=== PATIENT | male | born 1945 | race Caucasian/White ===

== ENCOUNTER 2017-05-30 06:26 | Day surgery (SDC) | payer MEDICARE, BC ==
[~2017-05-30 06:26] MED LIST: Lactated Ringers 1,000 ML IV SCH
[2017-05-30 08:51] VITALS: BP 129/88
[2017-05-30] MEDS ORDERED: Labetalol 20 MG/4 ML Syringe ONE (09:08)
--- NOTE | 2017-05-30 14:10 | OR ---
PREOPERATIVE DIAGNOSIS: History of polyps. POSTOPERATIVE DIAGNOSIS: Sigmoid diverticulosis. Otherwise, normal exam. PROCEDURE PROPOSED: Total flexible colonoscopy. PROCEDURE DONE: Total flexible colonoscopy. INDICATION: This is a 71-year-old gentleman who comes in for colonic surveillance due to history of polyps. His last examination was about 5 years ago. He is requesting no anesthesia, and he has had all his previous colonoscopies done without anesthesia. TECHNIQUE: The patient was brought to the endoscopy suite, placed in the left lateral decubitus position. He was monitored with blood pressure and cardiac monitoring as well as O2 saturation and was not given any sedation. The flexible video colonoscope was then passed transanally and under visualization advanced to the cecum. He had a rather long colon requiring the entire length of the colonoscope. The examination revealed normal cecal area, ascending, transverse, and descending colon. The sigmoid colon revealed [id number] diverticulosis, and the rectal mucosa was normal. There was no evidence of any polyps, colitis or other abnormalities. The scope was then withdrawn. The patient tolerated the procedure well. IMPRESSION: 1. Sigmoid diverticulosis. Otherwise, normal exam. 2. History of polyps. PLAN: He should consider one more screening examination in 5 years. SCM: 05/30/2017 08:01:38 MODL: 05/30/2017 12:28:15 /[id number]
== END 2017-05-30 09:10 | disposition home or self-care (01) ==
LOC: VM.SDS 06:26
PROVIDERS: ATTEND Surgery
DX: Z12.11 Encounter for screening for malignant neoplasm of colon (principal); Z86.010 Personal history of colon polyps; K57.30 Diverticulosis of large intestine without perforation or abscess without bleeding; E11.42 Type 2 diabetes mellitus with diabetic polyneuropathy; I10 Essential (primary) hypertension; I25.810 Atherosclerosis of coronary artery bypass graft(s) without angina pectoris; E66.01 Morbid (severe) obesity due to excess calories; G47.33 Obstructive sleep apnea (adult) (pediatric); E78.1 Pure hyperglyceridemia; Z79.01 Long term (current) use of anticoagulants; Z79.899 Other long term (current) drug therapy; Z79.82 Long term (current) use of aspirin; Z79.84 Long term (current) use of oral hypoglycemic drugs; E83.52 Hypercalcemia; Z96.659 Presence of unspecified artificial knee joint
CPT/HCPCS: 00810; 36415; 82962; 85610; G0105; J7120; A9270-GY

== ENCOUNTER 2021-09-02 23:41 | Inpatient (IN) | payer MEDICARE, BC ==
[2021-09-03] MEDS ORDERED: cefTRIAXone 2 GM Vial IVPUSH STA (00:03)
[2021-09-03] MEDS ORDERED: Sodium Chloride 0.9% 1,000 ML IV SCH ×3 (00:15→09:45)
[2021-09-03 00:41] LABS: CHLORIDE,CL 101 mmol/L (98-107); SODIUM,NA 136 mmol/L (136-145)
--- NOTE | 2021-09-03 00:50 | EDM.PDOC ---
ED HPI GENERAL MEDICAL PROBLEM - General Chief Complaint: Neuro Symptoms/Deficits Stated Complaint: stroke code Time Seen by Provider: 09/02/21 23:47 Source of Information: Reports: Patient History Limitations: Reports: No Limitations - History of Present Illness INITIAL COMMENTS - FREE TEXT/NARRATIVE: Shane is a 75 year old male who presents to ER with EMS for increased weakness. EMS was called initially for a lift assist. Patient very weak, questioned left side arm weakness. Called for stroke code. Patient disoriented to time for EMS. Oriented to person and place. Was unable to provide much history for EMS. Denies chest pain or shortness of breath. Denies cough. No nausea/vomiting or abdominal pain. States "was weak and couldn't get out of the chair". Has been eating today. Took his meds as well. EMS did do EKG, showed atrial fib. Vitals stable. Blood sugar 120. No temp taken. Onset: Today, Gradual Duration: Hour(s): (last known well time 629) Location: Reports: Generalized Associated Symptoms: Reports: Confusion, Fever/Chills, Malaise, Weakness. Denies: Chest Pain, Cough, Headaches, Loss of Appetite, Nausea/Vomiting, Shortness of Breath Treatments [employer]: Reports: See EMS Report - Related Data Allergies Allergy/AdvReac Type Severity Reaction Status Date / Time No Known Allergies Allergy Verified 09/12/19 13:43 Home Meds: Home Meds Acetaminophen [Non-Aspirin] 650 mg PO ASDIRECTED PRN 01/19/14 [History] Aspirin [Halfprin] 81 mg PO DAILY 01/19/14 [History] Metoprolol Succinate [Toprol Xl] 200 mg PO BID 01/19/14 [History] Warfarin [Coumadin] 5 mg PO ASDIRECTED 01/19/14 [History] glipiZIDE [Glipizide] 5 mg PO DAILY 05/23/17 [History] Furosemide 20 mg PO DAILY 09/04/19 [History] Rosuvastatin Calcium 10 mg PO DAILY 09/04/19 [History] Tamsulosin [Tamsulosin 24 Hr] 0.4 mg PO DAILY 09/04/19 [History] dilTIAZem HCL [Diltiazem 24Hr ER] 180 mg PO DAILY 09/04/19 [History] lisinopriL [Lisinopril] 20 mg PO DAILY 09/04/19 [History] metFORMIN HCl [Glucophage] 1,000 mg PO BID 09/04/19 [History] Gabapentin [Neurontin] 100 mg PO BEDTIME 08/10/20 [History] Past Medical History HEENT History: Reports: None Cardiovascular History: Reports: Afib, CAD, High Cholesterol, Hypertension Other Cardiovascular History: aortic stenosis (moderate). 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 hypercalcemia Immunologic History: Reports: None Oncologic (Cancer) History: Reports: Colon - Past Surgical History Head Surgeries/Procedures: Reports: None HEENT Surgical History: Reports: Adenoidectomy, Tonsillectomy Cardiovascular Surgical History: Reports: Coronary Artery Bypass GI Surgical History: Reports: Colonoscopy Musculoskeletal Surgical History: Reports: Knee Replacement Oncologic Surgical History: Reports: None Social & Family History - Family History Cardiac: Reports: Heart Murmur Other Cardiac Family History: brother: heart murmur Respiratory: Reports: Asthma Other Respiratory Family Hisory: Brother: asthma - Tobacco Use Tobacco Use Status *Q: Unknown Ever Used Tobacco ED ROS GENERAL - Review of Systems Review Of Systems: See Below Constitutional: Reports: Fever, Chills, Malaise, Weakness, Fatigue. Denies: Decreased Appetite HEENT: Reports: Other (dry mouth). Denies: Ear Pain, Sinus Problem, Throat Pain Respiratory: Denies: Shortness of Breath, Cough Cardiovascular: Denies: Chest Pain, Edema, Lightheadedness Endocrine: Reports: Fatigue GI/Abdominal: Denies: Abdominal Pain, Constipation, Diarrhea, Nausea, Vomiting : Reports: Other (had bladder scope done on Sunday) Musculoskeletal: Reports: No Symptoms Skin: Reports: No Symptoms Neurological: Reports: Confusion, Weakness ED EXAM, NEURO - Physical Exam Exam: See Below Exam Limited By: No Limitations General Appearance: Alert, WD/WN, No Apparent Distress Eye Exam: Bilateral Eye: EOMI, PERRL Ears: Normal External Exam, Normal TMs Nose: Normal Inspection, Normal Mucosa, No Blood Throat/Mouth: Normal Inspection, Normal Oropharynx Head Exam: Normocephalic Neck: Normal Inspection, Supple, Non-Tender Respiratory/Chest: No Respiratory Distress, Lungs Clear, Normal Breath Sounds Cardiovascular: Irregularly Irregular GI/Abdominal: Normal Bowel Sounds, Soft, Non-Tender Neurological: Alert, Normal Mood/Affect, Normal Dorsiflexion, CN II-XII Intact, Normal Plantar Flexion, No Motor/Sensory Deficits, Oriented x 3 (oriented to person and place) Extremities: Normal Inspection, No Pedal Edema Skin Exam: Warm, Dry Course - Orders/Labs/Meds Orders: Active Orders 24 hr Category Date Time Status Patient Status [ADT] Routine ADT 09/03/21 02:05 Ordered Chest 1V Frontal [CR] Stat Exams 09/03/21 01:11 Taken Head wo Cont [CT] Stat Exams 09/02/21 23:42 Taken CULTURE BLOOD [BC] Stat Lab 09/03/21 00:09 Received CULTURE BLOOD [BC] Stat Lab 09/03/21 00:14 Received CULTURE URINE [RM] Stat Lab 09/03/21 01:52 Received Sodium Chloride 0.9% @ 125 MLS/HR (1000ml) Med 09/03/21 02:00 Ordered Sodium Chloride 0.9% [Normal Saline] 1,000 ml IV ASDIRECTED Sodium Chloride 0.9% [Normal Saline] 1,000 ml Med 09/03/21 00:15 Active IV ASDIRECTED Blood Culture x2 Reflex Set [OM.PC] Stat Oth 09/03/21 00:03 Ordered Medication Orders Sodium Chloride (Normal Saline) 1,000 mls @ 250 mls/hr IV ASDIRECTED [facility] Sodium Chloride (Normal Saline) 1,000 mls @ 125 mls/hr IV ASDIRECTED [facility] Labs: Laboratory Tests 09/03/21 09/03/21 09/03/21 Range/Units 00:04 00:04 00:04 WBC 22.4 H* (4.0-10.0) x10^3/uL RBC 4.84 (4.5-6.0) x10^6/uL Hgb 15.5 (14.0-18.0) g/dL Hct 45.5 (40.0-52.0) % MCV 94.0 H (78.0-93.0) fL MCH 32.0 (26.0-32.0) pg MCHC 34.1 (32.0-36.0) g/dL RDW Coeff of [place] 13.4 (10.0-15.0) % Plt Count 164 (130-400) x10^3/uL Add Manual Diff Yes Neutrophils % (Manual) 71 (50-80) % Band Neutrophils % 15 H (0-6) % Lymphocytes % (Manual) 5 L (25-50) % Monocytes % (Manual) 9 (2-11) % Absolute Neutrophils 19.3 H (1.8-7.7) x10^3/uL Lymphocytes # (Manual) 1.1 (1.0-4.8) x10^3/uL Monocytes # (Manual) 2.0 H (0.0-0.8) x10^3/uL Platelet Estimate Adequate Macrocytosis 1+ slight H PT 23.9 H (9.9-12.5) SEC INR 2.2 (2.0-3.5) APTT 39.0 H (25.6-32.8) SEC Sodium 136 (136-145) mmol/L Potassium 4.0 (3.5-5.1) mmol/L Chloride 101 (98-107) mmol/L Carbon Dioxide 18 L (21-32) mmol/L Anion Gap 21.0 H (5-15) mmol/L BUN 27 H (7-18) mg/dL Creatinine 1.7 H (0.70-1.30) mg/dL Est Cr Clr Drug Dosing TNP Estimated GFR (MDRD) 40 Glucose 147 H (70-99) mg/dL Lactic Acid (0.4-2.0) mmol/L Calcium 9.7 (8.5-10.1) mg/dL Corrected Calcium 10.3 H (8.5-10.1) mg/dL Total Bilirubin 1.8 H (0.2-1.0) mg/dL AST 29 (15-37) U/L ALT 18 (16-63) U/L Alkaline Phosphatase 55 (46-116) U/L Lactate Dehydrogenase 171 (85-227) U/L Creatine Kinase 760 H* (39-308) U/L Troponin I High Sens 34 (<=76) ng/L Total Protein 7.2 (6.4-8.2) g/dL Albumin 3.3 L (3.4-5.0) g/dL Globulin 3.9 Albumin/Globulin Ratio 0.85 Urine Color (YELLOW) Urine Appearance (CLEAR) Urine pH (5.0-8.0) Ur Specific [place] Urine Protein (NEGATIVE) mg/dL Urine Glucose (UA) (NEGATIVE) mg/dL Urine Ketones (NEGATIVE) mg/dL Urine Occult Blood (NEGATIVE) Urine Nitrite (NEGATIVE) Urine Bilirubin (NEGATIVE) Urine Urobilinogen (0.2) EU/dL Ur Leukocyte Esterase (NEGATIVE) Urine RBC (NOT SEEN) /HPF Urine WBC (NOT SEEN) /HPF Ur Squamous Epith Cells (NOT SEEN) /HPF Ur Transition Epith Cell (NOT SEEN) /HPF Urine Bacteria (NOT SEEN) /HPF Urine Mucus (NOT SEEN) /LPF SARS-CoV-2 RNA (DANILO) (NEGATIVE) 09/03/21 09/03/21 09/03/21 Range/Units 00:04 00:04 01:52 WBC (4.0-10.0) x10^3/uL RBC (4.5-6.0) x10^6/uL Hgb (14.0-18.0) g/dL Hct (40.0-52.0) % MCV (78.0-93.0) fL MCH (26.0-32.0) pg MCHC (32.0-36.0) g/dL RDW Coeff of [place] (10.0-15.0) % Plt Count (130-400) x10^3/uL Add Manual Diff Neutrophils % (Manual) (50-80) % Band Neutrophils % (0-6) % Lymphocytes % (Manual) (25-50) % Monocytes % (Manual) (2-11) % Absolute Neutrophils (1.8-7.7) x10^3/uL Lymphocytes # (Manual) (1.0-4.8) x10^3/uL Monocytes # (Manual) (0.0-0.8) x10^3/uL Platelet Estimate Macrocytosis PT (9.9-12.5) SEC INR (2.0-3.5) APTT (25.6-32.8) SEC Sodium (136-145) mmol/L Potassium (3.5-5.1) mmol/L Chloride (98-107) mmol/L Carbon Dioxide (21-32) mmol/L Anion Gap (5-15) mmol/L BUN (7-18) mg/dL Creatinine (0.70-1.30) mg/dL Est Cr Clr Drug Dosing Estimated GFR (MDRD) Glucose (70-99) mg/dL Lactic Acid 6.7 H* (0.4-2.0) mmol/L Calcium (8.5-10.1) mg/dL Corrected Calcium (8.5-10.1) mg/dL Total Bilirubin (0.2-1.0) mg/dL AST (15-37) U/L ALT (16-63) U/L Alkaline Phosphatase (46-116) U/L Lactate Dehydrogenase (85-227) U/L Creatine Kinase (39-308) U/L Troponin I High Sens (<=76) ng/L Total Protein (6.4-8.2) g/dL Albumin (3.4-5.0) g/dL Globulin Albumin/Globulin Ratio Urine Color Lorna H (YELLOW) Urine Appearance Cloudy H (CLEAR) Urine pH 5.5 (5.0-8.0) Ur Specific [place] >=1.030 Urine Protein 100 H (NEGATIVE) mg/dL Urine Glucose (UA) Negative (NEGATIVE) mg/dL Urine Ketones Trace H (NEGATIVE) mg/dL Urine Occult Blood Moderate H (NEGATIVE) Urine Nitrite Positive H (NEGATIVE) Urine Bilirubin Small H (NEGATIVE) Urine Urobilinogen 0.2 (0.2) EU/dL Ur Leukocyte Esterase Small H (NEGATIVE) Urine RBC 5-10 H (NOT SEEN) /HPF Urine WBC 75-100 H (NOT SEEN) /HPF Ur Squamous Epith Cells Moderate H (NOT SEEN) /HPF Ur Transition Epith Cell Few H (NOT SEEN) /HPF Urine Bacteria Few H (NOT SEEN) /HPF Urine Mucus Few H (NOT SEEN) /LPF SARS-CoV-2 RNA (DANILO) Negative (NEGATIVE) Meds: Medications Generic Name Dose Route Start Last Admin Trade Name Freq PRN Reason Stop Dose Admin Sodium Chloride 1,000 mls @ 250 mls/hr 09/03/21 00:15 Normal Saline IV ASDIRECTED [facility] Sodium Chloride 1,000 mls @ 125 mls/hr 09/03/21 02:00 Normal Saline IV ASDIRECTED [facility] Discontinued Medications Generic Name Dose Route Start Last Admin Trade Name Ham PRN Reason Stop Dose Admin Acetaminophen 650 mg 09/03/21 01:52 Acetaminophen 325 Mg Tab PO 09/03/21 01:53 NOW ONE Ceftriaxone Sodium 2 gm 09/03/21 00:03 Ceftriaxone 2 Gm Vial IVPUSH 09/03/21 00:04 STAT STA - Re-Assessments/Exams Free Text/Narrative Re-Assessment/Exam: 09/03/21 01:14 Labs noted. WBC 22.4, bands 15. Sodium, potassium normal. BUN 27, Creatinine 1.7. Lactic acid 6.7. CK 760. Waiting on urine. 09/03/21 02:07 urine positive. Elias Garcia PA-C called for admission, report given. Departure - Departure Time of Disposition: 02:08 Disposition: Admitted As Inpatient 67 Condition: Fair Clinical Impression: Sepsis, Urinary tract infection - Discharge Information *PRESCRIPTION DRUG MONITORING PROGRAM REVIEWED*: No *COPY OF PRESCRIPTION DRUG MONITORING REPORT IN PATIENT GREG: No Referrals: PCP,None [Primary Care Provider] - Forms: ED Department Discharge - My Orders Last 24 Hours: My Active Orders 09/02/21 23:42 Head wo Cont [CT] Stat 09/03/21 00:03 Blood Culture x2 Reflex Set [OM.PC] Stat 09/03/21 00:09 CULTURE BLOOD [BC] Stat 09/03/21 00:14 CULTURE BLOOD [BC] Stat 09/03/21 00:15 Sodium Chloride 0.9% [Normal Saline] 1,000 ml IV ASDIRECTED 09/03/21 01:11 Chest 1V Frontal [CR] Stat 09/03/21 01:52 CULTURE URINE [RM] Stat 09/03/21 02:00 Sodium Chloride 0.9% @ 125 MLS/HR (1000ml) Sodium Chloride 0.9% [Normal Saline] 1,000 ml IV ASDIRECTED 09/03/21 02:05 Patient Status [ADT] Routine - Assessment/Plan Last 24 Hours: My Active Orders 09/02/21 23:42 Head wo Cont [CT] Stat 09/03/21 00:03 Blood Culture x2 Reflex Set [OM.PC] Stat 09/03/21 00:09 CULTURE BLOOD [BC] Stat 09/03/21 00:14 CULTURE BLOOD [BC] Stat 09/03/21 00:15 Sodium Chloride 0.9% [Normal Saline] 1,000 ml IV ASDIRECTED 09/03/21 01:11 Chest 1V Frontal [CR] Stat 09/03/21 01:52 CULTURE URINE [RM] Stat 09/03/21 02:00 Sodium Chloride 0.9% @ 125 MLS/HR (1000ml) Sodium Chloride 0.9% [Normal Saline] 1,000 ml IV ASDIRECTED 09/03/21 02:05 Patient Status [ADT] Routine
[2021-09-03] MEDS ORDERED: Acetaminophen 325 MG Tab PO ONE (01:52)
--- NOTE | 2021-09-03 08:52 | CT ---
[id number] CT/CT Head WO IV EXAM: CT Head WO IV CLINICAL DATA: STROKE CODE COMPARISON STUDY: None FINDINGS: No intracranial hemorrhage, extra-axial fluid collection, mass, or acute ischemia. Generalized parenchymal atrophy with scattered areas of nonspecific white matter disease, commonly seen as sequela of chronic microvascular ischemia. Soft tissues are unremarkable. Paranasal sinuses and mastoid air cells are clear. IMPRESSION: No acute intracranial findings. Iker Rios DO 09/03/21 0851 Thank you for allowing us to participate in the care of your patient.
--- NOTE | 2021-09-03 08:56 | CR ---
[id number] RAD/RAD Chest PA or AP 1V EXAM: RAD Chest PA or AP 1V INDICATION: FEVER OF UNKNOWN ORIGIN COMPARISON: None. DISCUSSION: Median sternotomy wires. Cardiomediastinal silhouette is interval. No infiltrate, effusion, pneumothorax, or edema. Pulmonary hyperinflation. IMPRESSION: Cardiomegaly without evidence of acute CHF exacerbation. Iker Rios DO 09/03/21 0855 Thank you for allowing us to participate in the care of your patient.
[2021-09-03] MEDS ORDERED: LISINOPRIL PO SCH (09:30)
[2021-09-03] MEDS: Acetaminophen 500 MG Tab PO PRN ×2 (10:13→17:22)
[2021-09-03] MEDS: Lisinopril 20 MG Tab PO SCH ×2 (10:13→19:52)
[2021-09-03] MEDS: metFORMIN 500 MG Tab PO SCH ×2 (10:13→17:23)
[2021-09-03] MEDS: Rosuvastatin 20 MG Tab PO SCH (10:14)
[2021-09-03] MEDS: Tamsulosin 0.4 MG Cap.ER PO SCH (10:14)
[2021-09-03] MEDS: Diltiazem 180 MG Cap.CD PO SCH (10:14)
[2021-09-03] MEDS: glipiZIDE 5 MG Tab PO SCH (10:15)
[2021-09-03] MEDS: Aspirin 81 MG Tab.EC PO SCH (10:15)
[2021-09-03] MEDS: amLODIPine 10 MG Tab PO SCH (10:15)
[2021-09-03] MEDS: Furosemide 40 MG Tab PO SCH (10:15)
[2021-09-03] MEDS: Digoxin 125 MCG Tab PO SCH (10:15)
[2021-09-03] MEDS: Metoprolol Succinate 50 MG Tab.ER PO SCH (10:19)
[2021-09-03] MEDS ORDERED: Nitrofurantoin Monohydrate/Macrocrystalline 100 MG Cap PO SCH (10:30)
[2021-09-03 11:25] LABS: ANION GAP 14.6 mmol/L (5-15)
[2021-09-03] MEDS ORDERED: Magnesium Sulfate/Water 4 GM in Premix Bag 1 BAG IV ONE (12:16)
[2021-09-03] MEDS ORDERED: Piperacillin/Tazobactam 3.375 GM in Sodium Chloride 0.9% 100 ML IV ONE (12:45)
[2021-09-03] MEDS: cefTRIAXone 1 GM Vial IVPUSH SCH (12:50)
[2021-09-03] MEDS: Sodium Chloride 0.9% 1,000 ML IV SCH (13:29)
--- NOTE | 2021-09-03 13:50 | HP ---
History and physical to the acute care floor at [facility]. CHIEF COMPLAINT: Increased weakness. HISTORY OF PRESENT ILLNESS: A 75-year-old male patient presented to the emergency room at [facility] early this morning via EMS for increased weakness. EMS was called initially per lift assist. The patient was very weak, questioned left-side arm weakness. Therefore, they felt a stroke code was necessary. CT scan of the head was negative for acute pathology. Upon arrival to the emergency room, the patient was oriented to person and place. The patient was unable to provide much history upon arrival. The patient states he was trying to get out of bed to go use the restroom when his legs were very weak and he fell to the floor. The patient denies any head injury or LOC. No neck or back pain. The patient states he was too weak to get off the floor, so he laid there for quite some time before EMS was summoned. In the emergency room, the CT of the head was negative. The patient did have a positive UA. The patient also had a significant elevated WBC count of 22.4 with a left shift. Chest x-ray was negative. The patient had an elevated lactic acid of 6.7 and a CK of 760. Also, acute renal failure with a BUN of 27, creatinine 1.7. PAST MEDICAL HISTORY: 1. Essential hypertension. 2. CAD. 3. Chronic atrial fib. 4. Severe aortic stenosis. 5. Ascending aortic dilation. 6. Obstructive sleep apnea, on CPAP. 7. Type 2 diabetes. 8. Mixed hyperlipidemia. 9. Benign neoplasm of the colon. 10.BPH. 11.Long-term use of anticoagulation therapy. 12.History of falls. PAST SURGICAL HISTORY: 1. Colonoscopy. 2. CABG. 3. Right total knee replacement. 4. Tonsillectomy and adenoidectomy. 5. Vein ligation, stripping. 6. Aortic valve replacement, bioprosthetic. FAMILY HISTORY: Noncontributory. SOCIAL HISTORY: The patient is a former smoker. He quit smoking in 1997. No alcohol use. No drug use. The patient is currently not . The patient does live alone. ALLERGIES: No known drug allergies. MEDICATIONS: 1. Acetaminophen 500 mg every 4 hours as needed. 2. Lasix 20 mg 1 tablet p.o. daily. 3. Coumadin. 4. Flomax 0.4 mg 1 capsule p.o. daily. 5. Digoxin 0.0625, 1 tablet p.o. daily. 6. Amlodipine 10 mg 1 tablet p.o. daily. 7. Gabapentin 100 mg 1 tablet p.o. daily at bedtime. 8. Ergocalciferol 50,000 units every 7 days. 9. Glipizide 5 mg 1 tablet p.o. daily. 10.Lisinopril 20 mg twice daily. 11.Metformin 1000 mg 1 tablet p.o. twice daily. 12.Crestor 10 mg 1 tablet p.o. daily. 13.Diltiazem 180 mg 1 capsule p.o. daily. 14.Metoprolol 200 mg 1 tablet p.o. daily. 15.Aspirin 81 mg 1 tablet p.o. daily. LABORATORY STUDIES: 1. CBC: White blood cell count 22.4, hemoglobin 15.5, hematocrit 45.5, platelets 164,000. 2. PT 23.9, INR 2.2. 3. CMP: Sodium 136, potassium 4.0, chloride 101, CO2 of 18, anion gap 21.0, BUN 27, creatinine 1.7, GFR 40, glucose 147, calcium 9.7, total bilirubin 1.8, AST 29, ALT 18, alkaline phosphatase 55. 4. Lactic acid 6.7. 5. CK 760. 6. LDH 171. 7. UA positive for UTI. 8. COVID-19 - negative. REVIEW OF SYSTEMS: Constitutional: Complains of weakness Skin: Negative Respiratory: Negative Cardiovascular: Negative Abdomen: Negative Neurological: Negative PHYSICAL EXAM: Vital Signs: BP 123/73; HR 100; RR 20; Temp 99.3F; O2 95 Room Air Height: 6'0"; Admission weight 274.9lb General: No acute distress; cooperative; alert Respiratory: decreased throughout; bibasilar crackles Cardiovascular: RRR, no murmur Abdomen: obese; BS decreased; soft, non-tender Extremity: No edema Neurological: alert, disoriented to time; oriented to place and self; no focal neurological deficits ASSESSMENT: 1. Sepsis secondary to urinary tract infection as evidenced by leukocytosis, lactic acidosis. 2. Urinary tract infection, complicated. 3. Profound weakness. 4. Chronic atrial fibrillation. 5. Essential hypertension. 6. Coronary artery disease. 7. Type 2 diabetes, not on long-term use insulin. 8. Obstructive sleep apnea, on CPAP. 9. Mixed hyperlipidemia secondary to diabetes. 10.Benign neoplasm of the colon. 11.Long-term use of anticoagulant therapy. 12.Acute kidney injury. PLAN: A 75-year-old male patient was admitted to the acute care floor at [facility] for the above diagnoses. The patient will continue on Rocephin 1 g daily IV concurrently was Zosyn 3.375 mg every 6 hours. The patient's blood cultures preliminarily are positive for gram-negative rods. We should have good coverage with the current antibiotics. Pharmacy to dose Coumadin and monitor INR. Physical and occupational therapy respectively. We will gently rehydrate the patient with normal saline given the elevated CK. The patient is a code 2 per his wishes. The patient does wish to transfer to a higher level of care should the need arise. Continue home medications the same. May consider holding metformin depending upon kidney function. We will replace magnesium 4 g IV today. I do anticipate the patient to be admitted at least 3 to 4 days given the sepsis and positive blood cultures. Recheck laboratory work tomorrow. TB: 09/03/2021 13:01:57 MODL: 09/03/2021 13:43:15 /[id number] MTDD
[2021-09-03] MEDS: Warfarin 5 MG Tab PO SCH (19:53)
[2021-09-03] MEDS: Gabapentin 100 MG Cap PO SCH (19:53)
[2021-09-03] MEDS: Piperacillin/Tazobactam 3.375 GM in Sodium Chloride 0.9% 100 ML IV SCH (19:53)
[2021-09-04] MEDS: Piperacillin/Tazobactam 3.375 GM in Sodium Chloride 0.9% 100 ML IV SCH ×3 (04:23→20:14)
[2021-09-04] MEDS: Sodium Chloride 0.9% 1,000 ML IV SCH ×2 (04:26→16:55)
[2021-09-04] MEDS: Aspirin 81 MG Tab.EC PO SCH (08:16)
[2021-09-04] MEDS: Metoprolol Succinate 50 MG Tab.ER PO SCH (08:16)
[2021-09-04] MEDS: Lisinopril 20 MG Tab PO SCH ×2 (08:17→20:13)
[2021-09-04] MEDS: Furosemide 40 MG Tab PO SCH (08:18)
[2021-09-04] MEDS: Rosuvastatin 20 MG Tab PO SCH (08:18)
[2021-09-04] MEDS: Diltiazem 180 MG Cap.CD PO SCH (08:18)
[2021-09-04] MEDS: Digoxin 125 MCG Tab PO SCH (08:19)
[2021-09-04] MEDS: metFORMIN 500 MG Tab PO SCH ×2 (08:20→17:47)
[2021-09-04] MEDS: glipiZIDE 5 MG Tab PO SCH (08:20)
[2021-09-04] MEDS: cefTRIAXone 1 GM Vial IVPUSH SCH (08:21)
[2021-09-04] MEDS: amLODIPine 10 MG Tab PO SCH (08:21)
[2021-09-04] MEDS: Tamsulosin 0.4 MG Cap.ER PO SCH (08:21)
[2021-09-04 08:59] LABS: ANION GAP 16.8 mmol/L (5-15)
--- NOTE | 2021-09-04 14:11 | PN ---
Progress Note for LUIS ESPARZA Date: 09/04/2021 Room #: VM.218 SUBJECTIVE: A 75-year-old male patient was admitted to the acute care floor at [facility] for sepsis secondary to UTI, evidenced by leukocytosis and lactic acidosis. The patient is currently on Zosyn and Rocephin. The patient also had rhabdomyolysis with a CK of 3400. The patient's COVID-19 is negative. The patient states this morning he is feeling much better. He states his weakness seemed to improve. The patient's appetite has been good. He denies any problems with urination or bowel movements. No headaches, dizziness, or lightheadedness. The patient denies any pain. No chest pain or palpitations. No cough or shortness of breath. The patient denies any abdominal pain. No nausea, vomiting, or diarrhea. No fevers or chills. Overall, the patient feels that he is improving. PHYSICAL EXAMINATION: Vital Signs: Temperature 98.0, pulse 106, blood pressure 133/87, respiratory rate 16, and oxygen saturation 96% on room air. Skin: Intact, warm and dry. Respiratory: Lungs are decreased throughout, otherwise clear. Cardiovascular: Regular rate and rhythm, no murmur. Abdomen: Obese, nontender, and soft. Bowel sounds are hyperactive x4. Neurological: The patient is alert. The patient is oriented to self and place but disoriented to time. No focal neurological deficits. The patient is cooperative. LABORATORY STUDIES: 1. CBC: White blood cell count 19.5, hemoglobin 15.2, hematocrit 44.3, and platelets 100,000. 2. PT 26.5, INR 2.4. 3. BMP: Sodium 137, potassium 3.8, chloride 102, CO2 of 22, anion gap 16.8, BUN 27, creatinine 1.4, GFR 50, glucose 203, and calcium 9.1. 4. CK 1526. ASSESSMENT: 1. Sepsis secondary to urinary tract infection as evidenced by leukocytosis and lactic acidosis. 2. Urinary tract infection, complicated. 3. Profound weakness. 4. Chronic atrial fibrillation. 5. Essential hypertension. 6. Coronary artery disease. 7. Type 2 diabetes, not on long-term use insulin. 8. Obstructive sleep apnea, on CPAP. 9. Mixed hyperlipidemia secondary to diabetes. 10.Benign neoplasm of the colon. 11.Long-term use of anticoagulant therapy. 12.Acute kidney injury. PLAN: A 75-year-old male patient was admitted to the acute care floor at [facility] for the above diagnoses. Patient will continue on Rocephin 1 g every 24 hours and Zosyn 3.375 mg every 6 hours. The patient is doing much better today. His white cell count is improving. His CK has also improved. Awaiting lactic acid. Pharmacy will continue to dose Coumadin and monitor the INR. Recheck laboratory work tomorrow. No other changes with medication. TB: 09/04/2021 09:48:27 MODL: 09/04/2021 10:33:01 /[id number]
[2021-09-04] MEDS: Warfarin 5 MG Tab PO SCH (20:13)
[2021-09-04] MEDS: Gabapentin 100 MG Cap PO SCH (20:13)
[2021-09-05] MEDS: Piperacillin/Tazobactam 3.375 GM in Sodium Chloride 0.9% 100 ML IV SCH ×2 (04:05→12:33)
[2021-09-05] MEDS: Sodium Chloride 0.9% 1,000 ML IV SCH ×2 (05:11→16:57)
[2021-09-05 07:05] LABS: ANION GAP 12.8 mmol/L (5-15)
[2021-09-05] MEDS: cefTRIAXone 1 GM Vial IVPUSH SCH (08:28)
[2021-09-05] MEDS: Tamsulosin 0.4 MG Cap.ER PO SCH (08:29)
[2021-09-05] MEDS: glipiZIDE 5 MG Tab PO SCH (08:29)
[2021-09-05] MEDS: metFORMIN 500 MG Tab PO SCH ×2 (08:29→17:36)
[2021-09-05] MEDS: amLODIPine 10 MG Tab PO SCH (08:29)
[2021-09-05] MEDS: Furosemide 40 MG Tab PO SCH (08:29)
[2021-09-05] MEDS: Aspirin 81 MG Tab.EC PO SCH (08:29)
[2021-09-05] MEDS: Diltiazem 180 MG Cap.CD PO SCH (08:30)
[2021-09-05] MEDS: Metoprolol Succinate 50 MG Tab.ER PO SCH (08:30)
[2021-09-05] MEDS: Lisinopril 20 MG Tab PO SCH ×2 (08:30→20:06)
[2021-09-05] MEDS: Digoxin 125 MCG Tab PO SCH (08:30)
[2021-09-05] MEDS: Rosuvastatin 20 MG Tab PO SCH (08:30)
--- NOTE | 2021-09-05 13:04 | PCM.PN ---
- General Info Date of Service: 09/05/21 Subjective Update: Shane is a 75-year-old male who was admitted on 09/03/2021 after presenting to the ER for acute onset of confusion and weakness. notes that on the day of admit he had been quite tired and spent most of the day in bed. After soiling the bed and having 2 falls though they did call EMS for lift assist and to bring him into the ER for evaluation. After work-up patient was found to have a likely urosepsis. Also had a mild rhabdomyolysis secondary to time that he spent on the floor. He was admitted and initiated on IV antibiotics. Over the course of last 2 days he has become more he has become. His vital signs as well as his lab evaluation has been improving. His white blood cell count is down to 14.7 today. His anion gap is closed. His creatinine is improved. Blood cultures have grown out E. coli. Urine cultures have not grown anything yet. His notes that his color and his demeanor are quite improved. They do question if this infection can be secondary to a scope that he had completed last week. 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 He was supposed to start on antibiotics right after this procedure but notes a 4-hour delay. She is worried that this is what caused the infection. Functional Status: Reports: Pain Controlled - Review of Systems General: Reports: No Symptoms HEENT: Reports: No Symptoms Pulmonary: Reports: No Symptoms Cardiovascular: Reports: No Symptoms Gastrointestinal: Reports: No Symptoms Genitourinary: Reports: No Symptoms Musculoskeletal: Reports: No Symptoms Skin: Reports: No Symptoms Neurological: Reports: No Symptoms Psychiatric: Reports: No Symptoms - Patient Data Vitals - Most Recent: Last Vital Signs Temp 98 F 09/05/21 09:49 Pulse 113 H 09/05/21 09:49 Resp 20 09/05/21 09:49 BP 136/95 H 09/05/21 09:49 Pulse Ox 96 09/05/21 09:49 Weight - Most Recent: 286 lb I&O - Last 24 Hours: Intake & Output 09/04/21 09/05/21 09/05/21 22:59 06:59 14:59 Intake Total 2249 1100 120 Output Total 600 750 Balance 1649 350 120 Lab Results Last 24 Hours: Laboratory Results - last 24 hr 09/04/21 09/04/21 09/04/21 Range/Units 16:04 17:44 21:24 WBC (4.0-10.0) x10^3/uL RBC (4.5-6.0) x10^6/uL Hgb (14.0-18.0) g/dL Hct (40.0-52.0) % MCV (78.0-93.0) fL MCH (26.0-32.0) pg MCHC (32.0-36.0) g/dL RDW Coeff of Villa (10.0-15.0) % Plt Count (130-400) x10^3/uL Immature Gran % (Auto) (0.00-0.43) % Neut % (Auto) (50.0-80.0) % Lymph % (Auto) (25.0-50.0) % Burnet % (Auto) (2.0-11.0) % Eos % (Auto) (0.0-4.0) % Baso % (Auto) (0.2-1.2) % Neut # (Auto) (1.8-7.7) x10^3/uL Lymph # (Auto) (1.0-4.8) x10^3/uL Burnet # (Auto) (0.0-0.8) x10^3/uL Eos # (Auto) (0.0-0.5) x10^3/uL Baso # (Auto) (0.0-0.2) x10^3/uL Immature Gran # (Auto) (0.00-0.07) x10^3/uL Sodium (136-145) mmol/L Potassium (3.5-5.1) mmol/L Chloride (98-107) mmol/L Carbon Dioxide (21-32) mmol/L Anion Gap (5-15) mmol/L BUN (7-18) mg/dL Creatinine (0.70-1.30) mg/dL Est Cr Clr Drug Dosing mL/min Estimated GFR (MDRD) Glucose (70-99) mg/dL POC Glucose 154 H 121 H (70-99) mg/dL Lactic Acid 2.4 H* (0.4-2.0) mmol/L Calcium (8.5-10.1) mg/dL Corrected Calcium (8.5-10.1) mg/dL Total Bilirubin (0.2-1.0) mg/dL AST (15-37) U/L ALT (16-63) U/L Alkaline Phosphatase (46-116) U/L Total Protein (6.4-8.2) g/dL Albumin (3.4-5.0) g/dL Globulin Albumin/Globulin Ratio 09/05/21 09/05/21 09/05/21 Range/Units 06:15 06:15 06:18 WBC 14.7 H (4.0-10.0) x10^3/uL RBC 4.32 L (4.5-6.0) x10^6/uL Hgb 14.1 (14.0-18.0) g/dL Hct 40.4 (40.0-52.0) % MCV 93.5 H (78.0-93.0) fL MCH 32.6 H (26.0-32.0) pg MCHC 34.9 (32.0-36.0) g/dL RDW Coeff of Villa 13.5 (10.0-15.0) % Plt Count 98 L (130-400) x10^3/uL Immature Gran % (Auto) 0.30 (0.00-0.43) % Neut % (Auto) 89.4 H (50.0-80.0) % Lymph % (Auto) 4.2 L (25.0-50.0) % Burnet % (Auto) 5.9 (2.0-11.0) % Eos % (Auto) 0.1 (0.0-4.0) % Baso % (Auto) 0.1 L (0.2-1.2) % Neut # (Auto) 13.1 H (1.8-7.7) x10^3/uL Lymph # (Auto) 0.6 L (1.0-4.8) x10^3/uL Burnet # (Auto) 0.9 H (0.0-0.8) x10^3/uL Eos # (Auto) 0.0 (0.0-0.5) x10^3/uL Baso # (Auto) 0.0 (0.0-0.2) x10^3/uL Immature Gran # (Auto) 0.05 (0.00-0.07) x10^3/uL Sodium 139 (136-145) mmol/L Potassium 3.8 (3.5-5.1) mmol/L Chloride 103 (98-107) mmol/L Carbon Dioxide 27 (21-32) mmol/L Anion Gap 12.8 (5-15) mmol/L BUN 22 H (7-18) mg/dL Creatinine 1.2 (0.70-1.30) mg/dL Est Cr Clr Drug Dosing 59.28 mL/min Estimated GFR (MDRD) 59 Glucose 139 H (70-99) mg/dL POC Glucose 141 H (70-99) mg/dL Lactic Acid (0.4-2.0) mmol/L Calcium 8.8 (8.5-10.1) mg/dL Corrected Calcium 10.2 H (8.5-10.1) mg/dL Total Bilirubin 0.9 (0.2-1.0) mg/dL AST 66 H (15-37) U/L ALT 46 (16-63) U/L Alkaline Phosphatase 76 (46-116) U/L Total Protein 6.4 (6.4-8.2) g/dL Albumin 2.3 L (3.4-5.0) g/dL Globulin 4.1 Albumin/Globulin Ratio 0.56 // Range/Units 10:54 WBC (4.0-10.0) x10^3/uL RBC (4.5-6.0) x10^6/uL Hgb (14.0-18.0) g/dL Hct (40.0-52.0) % MCV (78.0-93.0) fL MCH (26.0-32.0) pg MCHC (32.0-36.0) g/dL RDW Coeff of Villa (10.0-15.0) % Plt Count (130-400) x10^3/uL Immature Gran % (Auto) (0.00-0.43) % Neut % (Auto) (50.0-80.0) % Lymph % (Auto) (25.0-50.0) % Burnet % (Auto) (2.0-11.0) % Eos % (Auto) (0.0-4.0) % Baso % (Auto) (0.2-1.2) % Neut # (Auto) (1.8-7.7) x10^3/uL Lymph # (Auto) (1.0-4.8) x10^3/uL Burnet # (Auto) (0.0-0.8) x10^3/uL Eos # (Auto) (0.0-0.5) x10^3/uL Baso # (Auto) (0.0-0.2) x10^3/uL Immature Gran # (Auto) (0.00-0.07) x10^3/uL Sodium (136-145) mmol/L Potassium (3.5-5.1) mmol/L Chloride (98-107) mmol/L Carbon Dioxide (21-32) mmol/L Anion Gap (5-15) mmol/L BUN (7-18) mg/dL Creatinine (0.70-1.30) mg/dL Est Cr Clr Drug Dosing mL/min Estimated GFR (MDRD) Glucose (70-99) mg/dL POC Glucose 130 H (70-99) mg/dL Lactic Acid (0.4-2.0) mmol/L Calcium (8.5-10.1) mg/dL Corrected Calcium (8.5-10.1) mg/dL Total Bilirubin (0.2-1.0) mg/dL AST (15-37) U/L ALT (16-63) U/L Alkaline Phosphatase (46-116) U/L Total Protein (6.4-8.2) g/dL Albumin (3.4-5.0) g/dL Globulin Albumin/Globulin Ratio Pascual Results Last 24 Hours: Microbiology 09/03/21 01:52 Urine Culture - Final Urine, Catheterized NO GROWTH AFTER 2 DAYS 09/03/21 00:14 Aerobic Blood Culture - Final Blood - Venous - Lab Draw Escherichia Coli Anaerobic Blood Culture - Final Escherichia Coli 09/03/21 00:09 Aerobic Blood Culture - Final Blood - Venous Escherichia Coli Anaerobic Blood Culture - Final Escherichia Coli Med Orders - Current: Current Medications Acetaminophen (Acetaminophen 500 Mg Tab) 500 mg PO Q4HR PRN PRN Reason: Pain Last Admin: 09/03/21 17:22 Dose: 500 mg Documented by: Amlodipine Besylate (Amlodipine 10 Mg Tab) 10 mg PO DAILY [facility] Last Admin: 09/05/21 08:29 Dose: 10 mg Documented by: Aspirin (Aspirin 81 Mg Tab.Ec) 81 mg PO DAILY [facility] Last Admin: 09/05/21 08:29 Dose: 81 mg Documented by: Ceftriaxone Sodium (Ceftriaxone 1 Gm Vial) 1 gm IVPUSH DAILY [facility] Last Admin: 09/05/21 08:28 Dose: 1 gm Documented by: Digoxin (Digoxin 125 Mcg Tab) 125 mcg PO DAILY [facility] Last Admin: 09/05/21 08:30 Dose: 125 mcg Documented by: Diltiazem HCl (Diltiazem 180 Mg Cap.Cd) 180 mg PO DAILY [facility] Last Admin: 09/05/21 08:30 Dose: 180 mg Documented by: Furosemide (Furosemide 40 Mg Tab) 20 mg PO DAILY [facility] Last Admin: 09/05/21 08:29 Dose: 20 mg Documented by: Gabapentin (Gabapentin 100 Mg Cap) 100 mg PO BEDTIME [facility] Last Admin: 09/04/21 20:13 Dose: 100 mg Documented by: Glipizide (Glipizide 5 Mg Tab) 5 mg PO DAILY [facility] Last Admin: 09/05/21 08:29 Dose: 5 mg Documented by: Sodium Chloride (Normal Saline) 1,000 mls @ 125 mls/hr IV ASDIRECTED [facility] Last Admin: 09/05/21 05:11 Dose: 125 mls/hr Documented by: Lisinopril (Lisinopril 20 Mg Tab) 20 mg PO BID [facility] Last Admin: 09/05/21 08:30 Dose: 20 mg Documented by: Metformin HCl (Metformin 500 Mg Tab) 1,000 mg PO BIDMEALS [facility] Last Admin: 09/05/21 08:29 Dose: 1,000 mg Documented by: Metoprolol Succinate (Metoprolol Succinate 50 Mg Tab.Er) 200 mg PO DAILY [facility] Last Admin: 09/05/21 08:30 Dose: 200 mg Documented by: Pharmacy Consult (Pharmacy Consult Order) 1 each .XX ASDIRECTED [facility] Rosuvastatin Calcium (Rosuvastatin 20 Mg Tab) 10 mg PO DAILY [facility] Last Admin: 09/05/21 08:30 Dose: 10 mg Documented by: Tamsulosin HCl (Tamsulosin 0.4 Mg Cap.Er) 0.4 mg PO DAILY [facility] Last Admin: 09/05/21 08:29 Dose: 0.4 mg Documented by: Warfarin Sodium (Warfarin 5 Mg Tab) 5 mg PO BEDTIME [facility] Last Admin: 09/04/21 20:13 Dose: 5 mg Documented by: Discontinued Medications Acetaminophen (Acetaminophen 325 Mg Tab) 650 mg PO NOW ONE Stop: 09/03/21 01:53 Last Admin: 09/03/21 01:55 Dose: 650 mg Documented by: Ceftriaxone Sodium (Ceftriaxone 2 Gm Vial) 2 gm IVPUSH STAT STA Stop: 09/03/21 00:04 Last Admin: 09/03/21 00:05 Dose: 2 gm Documented by: Sodium Chloride (Normal Saline) 1,000 mls @ 250 mls/hr IV ASDIRECTED [facility] Sodium Chloride (Normal Saline) 1,000 mls @ 125 mls/hr IV ASDIRECTED [facility] Last Infusion: 09/03/21 10:07 Dose: 75 mls/hr Documented by: Sodium Chloride (Normal Saline) 1,000 mls @ 75 mls/hr IV ASDIRECTED [facility] Magnesium Sulfate 4 gm/ Premix 100 mls @ 25 mls/hr IV ONETIME ONE Stop: 09/03/21 16:15 Last Admin: 09/03/21 12:28 Dose: 25 mls/hr Documented by: Piperacillin Sod/Tazobactam (Sod 3.375 gm/ Sodium Chloride) 100 mls @ 25 mls/hr IV Q8H [facility] Last Admin: 09/05/21 12:33 Dose: Not Given Documented by: Piperacillin Sod/Tazobactam (Sod 3.375 gm/ Sodium Chloride) 100 mls @ 200 mls/hr IV ONETIME ONE Stop: 09/03/21 13:14 Last Admin: 09/03/21 12:50 Dose: 200 mls/hr Documented by: Nitrofurantoin Macrocrystals (Nitrofurantoin Monohydrate/Macrocrystalline 100 Mg Cap) 100 mg PO BID [facility] Last Admin: 09/03/21 10:41 Dose: 100 mg Documented by: Non-Formulary Medication (Lisinopril [Lisinopril]) 20 mg PO DAILY [facility] Last Admin: 09/03/21 10:42 Dose: Not Given Documented by: - Exam General: Alert, Oriented HEENT: Mucous Membr. Moist/[place] Neck: Supple Lungs: Clear to Auscultation, Normal Respiratory Effort Cardiovascular: Regular Rate, Regular Rhythm GI/Abdominal Exam: Normal Bowel Sounds, Soft, Non-Tender, Other (obese) (Male) Exam: Other (catheter in place, red urine with some sediment) Extremities: Normal Inspection, Non-Tender, No Pedal Edema Skin: Warm, Dry Psy/Mental Status: Alert, Normal Affect, Normal Mood - Patient Data Lab Results Last 24 hrs: Laboratory Results - last 24 hr 09/04/21 09/04/21 09/04/21 Range/Units 16:04 17:44 21:24 WBC (4.0-10.0) x10^3/uL RBC (4.5-6.0) x10^6/uL Hgb (14.0-18.0) g/dL Hct (40.0-52.0) % MCV (78.0-93.0) fL MCH (26.0-32.0) pg MCHC (32.0-36.0) g/dL RDW Coeff of Villa (10.0-15.0) % Plt Count (130-400) x10^3/uL Immature Gran % (Auto) (0.00-0.43) % Neut % (Auto) (50.0-80.0) % Lymph % (Auto) (25.0-50.0) % Burnet % (Auto) (2.0-11.0) % Eos % (Auto) (0.0-4.0) % Baso % (Auto) (0.2-1.2) % Neut # (Auto) (1.8-7.7) x10^3/uL Lymph # (Auto) (1.0-4.8) x10^3/uL Burnet # (Auto) (0.0-0.8) x10^3/uL Eos # (Auto) (0.0-0.5) x10^3/uL Baso # (Auto) (0.0-0.2) x10^3/uL Immature Gran # (Auto) (0.00-0.07) x10^3/uL Sodium (136-145) mmol/L Potassium (3.5-5.1) mmol/L Chloride (98-107) mmol/L Carbon Dioxide (21-32) mmol/L Anion Gap (5-15) mmol/L BUN (7-18) mg/dL Creatinine (0.70-1.30) mg/dL Est Cr Clr Drug Dosing mL/min Estimated GFR (MDRD) Glucose (70-99) mg/dL POC Glucose 154 H 121 H (70-99) mg/dL Lactic Acid 2.4 H* (0.4-2.0) mmol/L Calcium (8.5-10.1) mg/dL Corrected Calcium (8.5-10.1) mg/dL Total Bilirubin (0.2-1.0) mg/dL AST (15-37) U/L ALT (16-63) U/L Alkaline Phosphatase (46-116) U/L Total Protein (6.4-8.2) g/dL Albumin (3.4-5.0) g/dL Globulin Albumin/Globulin Ratio 09/05/21 09/05/21 09/05/21 Range/Units 06:15 06:15 06:18 WBC 14.7 H (4.0-10.0) x10^3/uL RBC 4.32 L (4.5-6.0) x10^6/uL Hgb 14.1 (14.0-18.0) g/dL Hct 40.4 (40.0-52.0) % MCV 93.5 H (78.0-93.0) fL MCH 32.6 H (26.0-32.0) pg MCHC 34.9 (32.0-36.0) g/dL RDW Coeff of Villa 13.5 (10.0-15.0) % Plt Count 98 L (130-400) x10^3/uL Immature Gran % (Auto) 0.30 (0.00-0.43) % Neut % (Auto) 89.4 H (50.0-80.0) % Lymph % (Auto) 4.2 L (25.0-50.0) % Burnet % (Auto) 5.9 (2.0-11.0) % Eos % (Auto) 0.1 (0.0-4.0) % Baso % (Auto) 0.1 L (0.2-1.2) % Neut # (Auto) 13.1 H (1.8-7.7) x10^3/uL Lymph # (Auto) 0.6 L (1.0-4.8) x10^3/uL Burnet # (Auto) 0.9 H (0.0-0.8) x10^3/uL Eos # (Auto) 0.0 (0.0-0.5) x10^3/uL Baso # (Auto) 0.0 (0.0-0.2) x10^3/uL Immature Gran # (Auto) 0.05 (0.00-0.07) x10^3/uL Sodium 139 (136-145) mmol/L Potassium 3.8 (3.5-5.1) mmol/L Chloride 103 (98-107) mmol/L Carbon Dioxide 27 (21-32) mmol/L Anion Gap 12.8 (5-15) mmol/L BUN 22 H (7-18) mg/dL Creatinine 1.2 (0.70-1.30) mg/dL Est Cr Clr Drug Dosing 59.28 mL/min Estimated GFR (MDRD) 59 Glucose 139 H (70-99) mg/dL POC Glucose 141 H (70-99) mg/dL Lactic Acid (0.4-2.0) mmol/L Calcium 8.8 (8.5-10.1) mg/dL Corrected Calcium 10.2 H (8.5-10.1) mg/dL Total Bilirubin 0.9 (0.2-1.0) mg/dL AST 66 H (15-37) U/L ALT 46 (16-63) U/L Alkaline Phosphatase 76 (46-116) U/L Total Protein 6.4 (6.4-8.2) g/dL Albumin 2.3 L (3.4-5.0) g/dL Globulin 4.1 Albumin/Globulin Ratio 0.56 09/05/ Range/Units 10:54 WBC (4.0-10.0) x10^3/uL RBC (4.5-6.0) x10^6/uL Hgb (14.0-18.0) g/dL Hct (40.0-52.0) % MCV (78.0-93.0) fL MCH (26.0-32.0) pg MCHC (32.0-36.0) g/dL RDW Coeff of Villa (10.0-15.0) % Plt Count (130-400) x10^3/uL Immature Gran % (Auto) (0.00-0.43) % Neut % (Auto) (50.0-80.0) % Lymph % (Auto) (25.0-50.0) % Burnet % (Auto) (2.0-11.0) % Eos % (Auto) (0.0-4.0) % Baso % (Auto) (0.2-1.2) % Neut # (Auto) (1.8-7.7) x10^3/uL Lymph # (Auto) (1.0-4.8) x10^3/uL Burnet # (Auto) (0.0-0.8) x10^3/uL Eos # (Auto) (0.0-0.5) x10^3/uL Baso # (Auto) (0.0-0.2) x10^3/uL Immature Gran # (Auto) (0.00-0.07) x10^3/uL Sodium (136-145) mmol/L Potassium (3.5-5.1) mmol/L Chloride (98-107) mmol/L Carbon Dioxide (21-32) mmol/L Anion Gap (5-15) mmol/L BUN (7-18) mg/dL Creatinine (0.70-1.30) mg/dL Est Cr Clr Drug Dosing mL/min Estimated GFR (MDRD) Glucose (70-99) mg/dL POC Glucose 130 H (70-99) mg/dL Lactic Acid (0.4-2.0) mmol/L Calcium (8.5-10.1) mg/dL Corrected Calcium (8.5-10.1) mg/dL Total Bilirubin (0.2-1.0) mg/dL AST (15-37) U/L ALT (16-63) U/L Alkaline Phosphatase (46-116) U/L Total Protein (6.4-8.2) g/dL Albumin (3.4-5.0) g/dL Globulin Albumin/Globulin Ratio Result Diagrams: 09/05/21 06:15 09/05/21 06:15 Pascual Results Last 24 hrs: Microbiology 09/03/21 01:52 Urine Culture - Final Urine, Catheterized NO GROWTH AFTER 2 DAYS 09/03/21 00:14 Aerobic Blood Culture - Final Blood - Venous - Lab Draw Escherichia Coli Anaerobic Blood Culture - Final Escherichia Coli 09/03/21 00:09 Aerobic Blood Culture - Final Blood - Venous Escherichia Coli Anaerobic Blood Culture - Final Escherichia Coli Sepsis Event Note - Evaluation Sepsis Screening Result: Sepsis Risk - Focused Exam Vital Signs: Vital Signs Temp Pulse Pulse Resp BP BP BP 09/05/21 09:49 98 F 113 H 20 136/95 H 09/05/21 08:30 103 H 139/89 09/05/21 08:29 139/89 09/05/21 06:00 97.4 F 99 18 139/89 09/05/21 02:00 97.8 F 83 18 141/98 H Pulse Ox 09/05/21 09:49 96 09/05/21 08:30 09/05/21 08:29 09/05/21 06:00 95 09/05/21 02:00 95 - Problem List & Annotations (1) Urinary tract infection SNOMED Code(s): 90033147 Code(s): N39.0 - URINARY TRACT INFECTION, SITE NOT SPECIFIED Status: Acute Current Visit: Yes (2) Sepsis SNOMED Code(s): 74709535 Code(s): A41.9 - SEPSIS, UNSPECIFIED ORGANISM Status: Resolved Current Visit: Yes (3) Rhabdomyolysis SNOMED Code(s): 539361834 Code(s): M62.82 - RHABDOMYOLYSIS Status: Acute Current Visit: Yes - Problem List Review Problem List Initiated/Reviewed/Updated: Yes - My Orders Last 24 Hours: My Active Orders 09/06/21 06:00 BASIC METABOLIC PANEL,BMP [CHEM] Routine CBC WITH AUTO DIFF [HEME] Routine CREATINE KINASE,CK [CHEM] Routine LACTATE SEPSIS W/ REFLEX [CHEM] Routine - Plan Plan:: Shane is a 75-year-old male who is hospital day 3 for urosepsis. UTI Sepsis -Clinical status is improved -Laboratory status improving as well -Blood cultures have grown out E. coli. -Urine cultures with no growth at 48 hours -Lactic acid still mildly elevated -Question of this being secondary to his procedure he had performed last week by urology -Weakness, improving Plan: -We will continue on Rocephin 1 g daily, discontinue the Zosyn at this time. -Continue IV fluids and encourage oral intake -We will monitor overnight with repeat CBC, BMP, LA in the morning -PT/OT Rhabdomyolysis -Mild rhabdo at the time of admit Plan: -Continue IV fluids -Recheck BMP and CK in the morning NATALIA - resolved Chronic: -Atrial fibrillation -Hypertension -Coronary artery disease -Type 2 diabetes -KEYLA on CPAP -Hyperlipidemia Diet: Heart healthy as tolerated DVT: Patient is on oral anticoagulation Code: Full Disposition: Anticipate 1-2 more midnights. We will recheck his labsin the morning. Pending medical stability potential discharge home tomorrow.
[2021-09-05] MEDS: Acetaminophen 500 MG Tab PO PRN ×2 (14:15→20:06)
[2021-09-05] MEDS: Gabapentin 100 MG Cap PO SCH (20:06)
[2021-09-05] MEDS: Warfarin 5 MG Tab PO SCH (20:06)
[2021-09-06] MEDS: Sodium Chloride 0.9% 1,000 ML IV SCH (02:08)
[2021-09-06 07:27] LABS: CHLORIDE,CL 103 mmol/L (98-107); SODIUM,NA 138 mmol/L (136-145)
[2021-09-06 07:28] LABS: ANION GAP 13.1 mmol/L (5-15)
[2021-09-06] MEDS: glipiZIDE 5 MG Tab PO SCH (07:49)
[2021-09-06] MEDS: metFORMIN 500 MG Tab PO SCH (07:49)
[2021-09-06] MEDS: Digoxin 125 MCG Tab PO SCH (07:52)
[2021-09-06] MEDS: Furosemide 40 MG Tab PO SCH (07:52)
[2021-09-06] MEDS: amLODIPine 10 MG Tab PO SCH (07:53)
[2021-09-06] MEDS: Diltiazem 180 MG Cap.CD PO SCH (07:53)
[2021-09-06] MEDS: Metoprolol Succinate 50 MG Tab.ER PO SCH (07:53)
[2021-09-06] MEDS: Rosuvastatin 20 MG Tab PO SCH (07:54)
[2021-09-06] MEDS: Lisinopril 20 MG Tab PO SCH ×2 (07:54→20:18)
[2021-09-06] MEDS: Aspirin 81 MG Tab.EC PO SCH (07:54)
[2021-09-06] MEDS: Tamsulosin 0.4 MG Cap.ER PO SCH (07:54)
[2021-09-06] MEDS: Acetaminophen 500 MG Tab PO PRN (07:55)
[2021-09-06] MEDS: cefTRIAXone 1 GM Vial IVPUSH SCH (07:55)
[2021-09-06] MEDS ORDERED: cefTRIAXone 2 GM Vial IVPUSH STA (08:30)
[2021-09-06] MEDS ORDERED: cefTRIAXone 1 GM Vial IVPUSH STA (08:31)
[2021-09-06] MEDS: Potassium Chloride 10 MEQ Tab.ER PO SCH ×2 (08:40→20:18)
[2021-09-06] MEDS ORDERED: Magnesium Sulfate (4.06 MEQ/ML) 1 GM/2 ML SDV IM ONE (08:49)
[2021-09-06] MEDS ORDERED: Magnesium Sulfate/Water 2 GM in Premix Bag 1 BAG IV ONE (09:30)
[2021-09-06] MEDS ORDERED: Sodium Chloride 0.9% 10 ML Syringe FLUSH PRN (11:29)
[2021-09-06] MEDS ORDERED: Iopamidol 755 Mg/ML 100 ML Bottle IV ONE (12:00)
--- NOTE | 2021-09-06 13:08 | CT ---
[id number] CT/CT Abdomen Pelvis W IV EXAM: CT Abdomen Pelvis W IV CLINICAL DATA: BACTEREMIA. COMPARISON STUDY: 08/09/2021. FINDINGS: Dependent atelectasis at the lung bases bilaterally. The heart is enlarged. Layering stones within the gallbladder. No CT evidence of acute cholecystitis. The liver, spleen, and pancreas are unremarkable. Bilateral renal cortical cysts. Perinephric and periureteral fat stranding. This was seen on prior study. The urinary bladder demonstrates circumferential thickening likely secondary to chronic outlet obstruction in the setting of enlarged prostate. There is a hypodensity within the prostate measuring up to 1.9 cm. Colonic diverticulosis without evidence of acute diverticulitis. Nodular thickening of the adrenal glands bilaterally. Small amount of free fluid most pronounced along the paracolic gutters. Mild fat-containing periumbilical hernia. Scattered changes of spondylosis the spine. No fracture or osseous lesion. IMPRESSION: 1. The prostate is enlarged with at least one hypodensity consistent with a fluid collection measuring 1.9 cm. Findings could be seen with acute prostatitis and prostatic abscess. Iker Rios DO 09/06/21 [id number] Thank you for allowing us to participate in the care of your patient.
[2021-09-06] MEDS: Levofloxacin 500 MG Tab PO SCH (16:10)
--- NOTE | 2021-09-06 17:31 | PN ---
Progress Note for LUIS ESPARZA Date: 09/06/2021 Room #: VM.218 SUBJECTIVE: This is hospital day #4 on a 75-year-old admitted with severe sepsis, confusion, and gram-negative bacteremia which grew E. coli. His urine did show no growth, but working diagnosis was a UTI based on the fact the patient had cystoscopy on the 08/31/2021 and was supposed to go home and take Keflex, but there was a delay in starting it his said at least by 5 hours. He otherwise had spiked fever up to 100.6 yesterday at around 2 p.m., but is not having any pain. He has a catheter in since admission. He is not having any cough. No shortness of breath. No new back pain. He has been having loose stools every time he drinks something, having a total of 4 yesterday and 2 so far today. The patient is eating well. He has not been nauseated. He has had excellent urine output 1.6 L in 24 hours. He actually came in with acute renal failure and his kidney function significantly improved from 1.7 down to 0.9 today. Lactic acid also normalized down to 1.4. CK level that was elevated has also improved down to 400. He continued on his statin and metformin since admission. Blood sugars have been excellent. He is not requiring insulin. OBJECTIVE: Vital Signs: Today, his temperature is 98.1, his pulse is 103, blood pressure 121/76, respiratory rate at 19, and O2 of 94% on room air. General: He is in no acute distress. Heart: Irregularly irregular. Lungs: Lung sounds are clear to auscultation bilaterally without crackles or wheezes. Abdomen: Positive bowel sounds. It is soft, nondistended, nontender. Extremities: Warm and dry. No edema. Mental Status: He is alert and orientated x3. LABORATORY DATA: Lab work shows white count down to 10.6, hemoglobin 12.8, platelets 76. Sodium 138, potassium 3.1, chloride 103, bicarb 25, BUN 15, creatinine 0.9, glucose 132, lactic 1.4, magnesium 1.7, and CK 402. ASSESSMENT AND PLAN: 1. Severe sepsis secondary to gram-negative bacteremia. 2. Gram-negative bacteremia due to E. coli. In the morning, the source was unknown. Abdominal CT done during the day did confirm likely prostatitis versus a prostatic abscess, 1.9 cm. Discussed though with Urology and they felt this would be unlikely to occur so hyperacutely, but it could be a prostatitis from the recent cystoscopy. The patient was increased up to 2 g daily on Rocephin this morning and then I did add the Levaquin 500 daily to treat for 1-month plan. 3. Prostatitis. He will be getting 1 month of antibiotic treatment which will more than cover this. 4. Rhabdomyolysis, mild, likely due to the fall and acute illness. This is improving. We will recheck a CK tomorrow. 5. Atrial fibrillation, now under better rate control. He is on his beta- leora. INR in AM 6. Essential hypertension. We are continuing his home medications with the beta-leora. His renal function has normalized. He is getting his lisinopril. 7. History of TAVR and chronic diastolic heart failure. The patient is on his furosemide. 8. Bladder tumor. His urine is clear, no blood. He will be getting a TURBT in October. We will remove the Fan today for a voiding trial. 9. Morbid obesity. 10.Weakness and deconditioning due to his acute illness. He also has some chronic back pain and radiculopathy. We will get him up and working with therapies and see if he is stable for discharge. 11.Type 2 diabetes. I am going to hold his metformin due to the diarrhea. We will continue Accu-Cheks. We will continue his Glucotrol. 12.Obstructive sleep apnea. He is using his CPAP. 13.Coronary artery disease. He is not having any chest pain. 14.Hypokalemia and hypomagnesemia. We will replace orally with potassium, but due to diarrhea, I gave him IV magnesium. For deep venous thrombosis prophylaxis, the patient is on Coumadin. We will check an INR tomorrow. Anticipate he will be stable for discharge home with his tomorrow. Discontinue telemetry. MKA: 09/06/2021 16:57:47 MODL: 09/06/2021 17:25:31 /[id number]
[2021-09-06] MEDS: Warfarin 5 MG Tab PO SCH (20:19)
[2021-09-06] MEDS: Gabapentin 100 MG Cap PO SCH (20:19)
[2021-09-07] MEDS ORDERED: Furosemide 20 MG Tab PO SCH (08:00)
[2021-09-07] MEDS ORDERED: cefTRIAXone 2 GM Vial IVPUSH SCH (08:00)
[2021-09-07] MEDS ORDERED: Phytonadione 5 MG Tab PO ONE (08:10)
[2021-09-07] MEDS: Tamsulosin 0.4 MG Cap.ER PO SCH (08:28)
[2021-09-07] MEDS: Acetaminophen 500 MG Tab PO PRN (08:28)
[2021-09-07] MEDS: glipiZIDE 5 MG Tab PO SCH (08:28)
[2021-09-07] MEDS: Aspirin 81 MG Tab.EC PO SCH (08:28)
[2021-09-07] MEDS: Potassium Chloride 10 MEQ Tab.ER PO SCH (08:28)
[2021-09-07] MEDS: Diltiazem 180 MG Cap.CD PO SCH (08:28)
[2021-09-07] MEDS: Lisinopril 20 MG Tab PO SCH (08:29)
[2021-09-07] MEDS: Metoprolol Succinate 50 MG Tab.ER PO SCH (08:29)
[2021-09-07] MEDS: Digoxin 125 MCG Tab PO SCH (08:30)
[2021-09-07] MEDS: amLODIPine 10 MG Tab PO SCH (08:30)
[2021-09-07 08:47] LABS: CHLORIDE,CL 101 mmol/L (98-107); SODIUM,NA 136 mmol/L (136-145)
[2021-09-07 08:56] LABS: ANION GAP 14.7 mmol/L (5-15)
[2021-09-07] MEDS: Levofloxacin 500 MG Tab PO SCH (14:28)
[2021-09-07 18:23] VITALS: BP 153/96; PULSE 100
--- NOTE | 2021-09-08 00:47 | DISCH ---
PRIMARY DISCHARGE DIAGNOSES: 1. Severe sepsis secondary to Escherichia coli bacteremia. 2. Escherichia coli bacteremia secondary to prostatitis. 3. Prostatitis with recent cystoscopy for bladder tumor with planned TURBT in October. 4. Rhabdomyolysis from his sepsis and a fall. CK normal on discharge. His statin was held during his stay. 5. Atrial fibrillation, rate controlled with supratherapeutic INR this a.m., probably due to being on antibiotics. INR improved to 7 after vitamin K and no acute signs of bleeding. The patient discharged home on holding of warfarin. 6. Essential hypertension. 7. History of TAVR and chronic diastolic heart failure. He continued on his Lasix during his stay. 8. Renal tumor not felt to be malignant due to Urology. 9. Morbid obesity. 10.Weakness and deconditioning with underlying lumbar radiculopathy. He was doing well, working with therapies. 11.Type 2 diabetes with controlled blood sugars even with holding metformin. 12.Obstructive sleep apnea. He was using CPAP. 13.Coronary artery disease. He did not have any chest pain during this stay. 14.Hypokalemia. 15.Hypomagnesemia. REASON FOR ADMISSION: On the date of admission, this 75-year-old male was at home, incontinent, confused, weak, had fallen. He was found to have a fever and leukocytosis to 22,000. Actually, his lactic acid was 6.7. His CK level at 1 point went up to 3000. He was admitted. He was placed on IV fluids. He was given IV Rocephin. His urine looked abnormal. However, the culture was negative. His COVID test was negative. He had a chest x-ray which did not show any pneumonia. He had a head CT which did not show any acute stroke, as his primary presenting was a stroke code. The patient was continued on the IV Rocephin but continued to spike fevers. His last documented temperature was 100.6 on 2 p.m. on 09/05/2021. Therefore, I increased him to 2 g daily of Rocephin on the and he underwent a CT which did show the prostatitis. Therefore, he was switched over to oral Levaquin which he started yesterday. He is tolerating that. Discussion was had with Urology in the plan to complete a full 4 weeks of antibiotics and potentially he may need an additional 2 weeks depending on how his symptoms are. His CRP had already trended down from 34 to 10.7. All blood sugars after his admission were under 200. His kidney function, which was up to 1.7 on admission did normalize down to 1.0 on discharge. His white count was down to 13.7, hemoglobin was stable at 13.9, platelets were running mildly lower at 99 after being 164 on admission, but he did not receive any Lovenox. Overall, the patient had an uneventful hospital course other than receiving IV antibiotics. He did receive some IV fluids initially, but these were discontinued. He also had a catheter and this was discontinued and he was voiding okay. He was seen by therapies and was deemed to be stable enough for discharge. Due to his diarrhea he had earlier in his stay, he did get some of his magnesium IV and was given oral potassium supplements. His diarrhea did resolve prior to discharge and he had no bowel movements actually charted for the . DISCHARGE PHYSICAL EXAMINATION: Vital Signs: Discharging vitals include a temperature of 98, his pulse was 82, his blood pressure was 130/82, his respiratory rate was 18, and O2 of 97% on room air. General: He is in no acute distress. Heart: Irregularly irregular. Lungs: His lungs sounds are clear to auscultation bilaterally without crackles or wheezes. Abdomen: Positive bowel sounds. Soft, nondistended, nontender. Extremities: Warm and dry. No edema. Mental Status: He is alert. He is orientated x3. He is answering questions appropriately. DISCHARGE PLANS AND INSTRUCTIONS: He will follow up with Dr. Olivas in 1-2 weeks for a post hospital followup with a BMP and CBC at that time. He will hold his Coumadin tonight and have an INR tomorrow. He will do Levaquin 500 daily until 10/01/2021. He will have follow up with Urology as planned, but his PSA should not be drawn while he is recovering from prostatitis. He will decrease metformin to once daily while recovering. [id number] encounter occurred with myself on 09/07/2021. The primary reason for home health or for nursing, for teaching, and assessments for antibiotic use in this long-term infection as well as monitoring for bleeding with his supratherapeutic INR. PT is needed for ADLs and mobility due to the recent event of severe sepsis. He is weak and absences from home are infrequent and require taxing effort. He requires assistance of another person to leave his home. I will periodically review this plan of care. Greater than 30 minutes spent on this discharge process. MKA: 09/07/2021 18:59:46 MODL: 09/08/2021 00:13:27 /[id number]
== END 2021-09-07 18:00 | disposition home health service (06) | DRG 872 ==
LOC: VM.ED 23:41 → VM.MS 09-03 02:50
PROVIDERS: ADMIT Nurse Practitioner Family; ATTEND Internal Medicine
DX: A41.9 Sepsis, unspecified organism (principal); N39.0 Urinary tract infection, site not specified; A41.51 Sepsis due to Escherichia coli [E. coli]; N17.9 Acute kidney failure, unspecified; E78.00 Pure hypercholesterolemia, unspecified; R65.20 Severe sepsis without septic shock; G47.30 Sleep apnea, unspecified; I35.0 Nonrheumatic aortic (valve) stenosis; E78.1 Pure hyperglyceridemia; M19.90 Unspecified osteoarthritis, unspecified site; G89.29 Other chronic pain; M54.9 Dorsalgia, unspecified; N41.9 Inflammatory disease of prostate, unspecified; B96.20 Unspecified Escherichia coli [E. coli] as the cause of diseases classified elsewhere; E83.52 Hypercalcemia; Z85.038 Personal history of other malignant neoplasm of large intestine; T79.6XXA Traumatic ischemia of muscle, initial encounter; Z79.84 Long term (current) use of oral hypoglycemic drugs; Z79.82 Long term (current) use of aspirin; Z79.899 Other long term (current) drug therapy; W18.30XA Fall on same level, unspecified, initial encounter; I10 Essential (primary) hypertension; I48.91 Unspecified atrial fibrillation; E87.6 Hypokalemia; E83.42 Hypomagnesemia; Z20.822 Contact with and (suspected) exposure to COVID-19; N40.0 Benign prostatic hyperplasia without lower urinary tract symptoms; I25.10 Atherosclerotic heart disease of native coronary artery without angina pectoris; G47.33 Obstructive sleep apnea (adult) (pediatric); E11.9 Type 2 diabetes mellitus without complications; Z96.651 Presence of right artificial knee joint; E78.2 Mixed hyperlipidemia; M54.16 Radiculopathy, lumbar region; E66.01 Morbid (severe) obesity due to excess calories; Z68.36 Body mass index [BMI] 36.0-36.9, adult; Q79.61 Classical Ehlers-Danlos syndrome; Z90.6 Acquired absence of other parts of urinary tract; Z91.81 History of falling; Z79.4 Long term (current) use of insulin; Z95.1 Presence of aortocoronary bypass graft; Z79.01 Long term (current) use of anticoagulants; Y92.89 Other specified places as the place of occurrence of the external cause; Z90.89 Acquired absence of other organs; Z98.890 Other specified postprocedural states
CPT/HCPCS: 36415; 70450; 71045; 74177; 80048; 80053; 81001; 82550; 82947; 83605; 83615; 83735; 84100; 84484; 85025; 85610; 85730; 86140; 87040; 87077; 87086; 87186; 96374; 97110-GP; 97162-GP; 97165-GO; 97530-GP; 99284; 99285-25; A9270-GY; J0696; J2543; J3475; J7030; Q9967; U0002

== ENCOUNTER 2021-09-12 17:52 | Inpatient (IN) | payer MEDICARE, BC ==
[2021-09-12] MEDS ORDERED: Sodium Chloride 0.9% 10 ML Syringe FLUSH PRN (18:12)
--- NOTE | 2021-09-12 18:14 | EDM.PDOC ---
ED HPI GENERAL MEDICAL PROBLEM - General Chief Complaint: General Time Seen by Provider: 09/12/21 18:04 Source of Information: Reports: Patient, Family - History of Present Illness INITIAL COMMENTS - FREE TEXT/NARRATIVE: Shane is a 75 y/o male who is brought to the ER by EMS after the Home Health came to his home and he seemed a bit confused. He was discharged from the hospital on 09/07/21 following a stay for severe sepsis and Prostatitis bacteremia. He has also fallen and had some Rhabdomyolysis with elevated CK levels. According to the patient and his , he was doing better since getting home, up until today. He has not had much of an appetite and his reports that he seems so much more weak. Home Health nurse today felt he was a bit confused and she called 911. EMS crew denies that he has been confused. - Related Data Allergies Allergy/AdvReac Type Severity Reaction Status Date / Time No Known Allergies Allergy Verified 09/12/21 18:03 Home Meds: Home Meds Aspirin [Halfprin] 81 mg PO DAILY 01/19/14 [History] Metoprolol Succinate [Toprol XL] 200 mg PO DAILY 01/19/14 [History] Warfarin [Coumadin] 5 - 7.5 mg PO ASDIRECTED MDD 7.5 01/19/14 [History] glipiZIDE [Glipizide] 5 mg PO DAILY 05/23/17 [History] Furosemide 20 mg PO DAILY 09/04/19 [History] Rosuvastatin Calcium 10 mg PO DAILY 09/04/19 [History] Tamsulosin [Flomax] 0.4 mg PO DAILY 09/04/19 [History] dilTIAZem HCL [Diltiazem 24Hr ER] 180 mg PO DAILY 09/04/19 [History] lisinopriL [Lisinopril] 20 mg PO DAILY 09/04/19 [History] metFORMIN HCl [Glucophage] 1,000 mg PO DAILY 09/04/19 [History] Gabapentin [Neurontin] 100 mg PO BEDTIME 08/10/20 [History] Acetaminophen [Tylenol Extra Strength] 500 mg PO Q4HR PRN 09/03/21 [History] Digoxin 125 mcg PO DAILY 09/03/21 [History] Ergocalciferol (Vitamin D2) [Drisdol] 50,000 unit PO ASDIRECTED 09/03/21 [History] Potassium Chloride [Klor-Con 10] 20 meq PO DAILY #30 tab.er 09/07/21 [Rx] levoFLOXacin [Levaquin] 500 mg PO Q24H #23 tablet 09/07/21 [Rx] Past Medical History HEENT History: Reports: None Cardiovascular History: Reports: Afib, CAD, High Cholesterol, Hypertension Other Cardiovascular History: aortic stenosis (moderate). 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 hypercalcemia Immunologic History: Reports: None Oncologic (Cancer) History: Reports: Colon - Past Surgical History Head Surgeries/Procedures: Reports: None HEENT Surgical History: Reports: Adenoidectomy, Tonsillectomy Cardiovascular Surgical History: Reports: Coronary Artery Bypass GI Surgical History: Reports: Colonoscopy Musculoskeletal Surgical History: Reports: Knee Replacement Oncologic Surgical History: Reports: None Social & Family History - Family History Cardiac: Reports: Heart Murmur Other Cardiac Family History: brother: heart murmur Respiratory: Reports: Asthma Other Respiratory Family Hisory: Brother: asthma - Caffeine Use Caffeine Use: Reports: Coffee ED ROS GENERAL - Review of Systems Review Of Systems: See Below Constitutional: Reports: Weakness, Fatigue HEENT: Reports: No Symptoms Respiratory: Reports: No Symptoms Cardiovascular: Reports: No Symptoms Endocrine: Reports: No Symptoms GI/Abdominal: Reports: Decreased Appetite : Reports: No Symptoms Musculoskeletal: Reports: No Symptoms Skin: Reports: No Symptoms Neurological: Reports: Confusion Psychiatric: Reports: No Symptoms Hematologic/Lymphatic: Reports: No Symptoms Immunologic: Reports: No Symptoms ED EXAM, GENERAL - Physical Exam Exam: See Below General Appearance: Alert, WD/WN, No Apparent Distress (Elderly male, looks like he does not fell all that well. He does answer questions appropirately and is able to have a conversation with LMFT.) Eye Exam: Bilateral Eye: PERRL Ears: Normal External Exam, Normal Canal, Hearing Grossly Normal, Normal TMs Nose: Normal Inspection, Normal Mucosa Throat/Mouth: Normal Inspection, Normal Lips, Normal Voice, Other (Tongue is slightly dry in apapearance.) Head: Atraumatic, Normocephalic Neck: Normal Inspection, Supple, Non-Tender Respiratory/Chest: No Respiratory Distress, Lungs Clear, Chest Non-Tender Cardiovascular: Normal Peripheral Pulses, Regular Rate, Rhythm GI/Abdominal: Normal Bowel Sounds, Soft, Non-Tender (Male) Exam: Deferred Rectal (Males) Exam: Deferred Back Exam: Normal Inspection Extremities: Normal Inspection, Normal Range of Motion, No Pedal Edema, Normal Capillary Refill Neurological: Alert, Oriented, CN II-XII Intact, Normal Cognition, No Motor/Sensory Deficits Psychiatric: Normal Affect, Normal Mood Skin Exam: Warm, Intact, Normal Color, Other (Slightly calmmy) Lymphatic: No Adenopathy Course - Vital Signs Text/Narrative:: 1803 The patient was seen by the LMFT. Labs ordered. He was given some IV fluids. 1909 Note WBC=26.4, Lactic Acid=2.6. Ceftriaxone 2gm IVP ordered along with the NS bolus. Vital stable, afebrile. 1914 Dr Riya Olivas contacted and will plan to admit the patient to Acute Care. to see pt soon. Blood Cx pending. Procalcitonin ordered. See orders per Dr Olivas. Last Recorded V/S: Last Vital Signs Temp 36.6 C 09/12/21 17:52 Pulse 87 09/12/21 17:52 Resp 20 09/12/21 17:52 BP 107/70 09/12/21 17:52 Pulse Ox 95 09/12/21 17:52 - Orders/Labs/Meds Orders: Active Orders 24 hr Category Date Time Status Patient Status [ADT] Routine ADT 09/12/21 19:14 Ordered ACETAMINOPHEN [CHEM] Stat Lab 09/12/21 18:33 Results C-REACTIVE PROTEIN [CHEM] Stat Lab 09/12/21 18:33 Results COMPREHENSIVE METABOLIC PN,CMP [CHEM] Stat Lab 09/12/21 18:33 Results CORONAVIRUS COVID-19 RAPID [MOLEC] Stat Lab 09/12/21 18:13 Ordered CULTURE BLOOD [BC] Stat Lab 09/12/21 18:33 Received CULTURE BLOOD [BC] Stat Lab 09/12/21 18:40 Received MAGNESIUM [CHEM] Stat Lab 09/12/21 18:33 Results PROCALCITONIN [CHEM] Stat Lab 09/12/21 19:12 Ordered UA RFX MODESTO AND CULT IF INDIC [URIN] Stat Lab 09/12/21 18:13 Ordered Sodium Chloride 0.9% @ Wide Open(1,000ml) Med 09/12/21 19:09 Ordered Sodium Chloride 0.9% [Normal Saline] 1,000 ml IV ONETIME Sodium Chloride 0.9% [Saline Flush] Med 09/12/21 18:12 Active 10 ml FLUSH ASDIRECTED PRN Blood Culture x2 Reflex Set [OM.PC] Stat Oth 09/12/21 18:12 Ordered Saline Lock Insert [OM.PC] Stat Oth 09/12/21 18:12 Ordered Medication Orders Sodium Chloride (Normal Saline) 1,000 mls @ 999 mls/hr IV ONETIME ONE Stop: 09/12/21 20:09 Sodium Chloride (Sodium Chloride 0.9% 10 Ml Syringe) 10 ml FLUSH ASDIRECTED PRN PRN Reason: Keep Vein Open Labs: Laboratory Tests 09/12/21 09/12/21 09/12/21 Range/Units 18:33 18:33 18:33 WBC 26.4 H* (4.0-10.0) x10^3/uL RBC 4.39 L (4.5-6.0) x10^6/uL Hgb 14.0 (14.0-18.0) g/dL Hct 40.7 (40.0-52.0) % MCV 92.7 (78.0-93.0) fL MCH 31.9 (26.0-32.0) pg MCHC 34.4 (32.0-36.0) g/dL RDW Coeff of [place] 13.4 (10.0-15.0) % Plt Count 430 H D (130-400) x10^3/uL Add Manual Diff Yes Neutrophils % (Manual) 80 (50-80) % Band Neutrophils % 4 (0-6) % Lymphocytes % (Manual) 4 L (25-50) % Reactive Lymphs % 4 H (0) % Monocytes % (Manual) 8 (2-11) % Absolute Neutrophils 22.2 H (1.8-7.7) x10^3/uL Lymphocytes # (Manual) 2.1 (1.0-4.8) x10^3/uL Monocytes # (Manual) 2.1 H (0.0-0.8) x10^3/uL Hypersegmented Neuts Rare H Vacuolated Monocytes 1+ slight H Toxic Granulation 1+ slight H Platelet Estimate Increased H Spherocytes 1+ slight H PT 25.7 H D (9.9-12.5) SEC INR 2.3 (2.0-3.5) Sodium 132 L (136-145) mmol/L Potassium 5.3 H D (3.5-5.1) mmol/L Chloride 97 L (98-107) mmol/L Carbon Dioxide 25 (21-32) mmol/L Anion Gap 15.3 H (5-15) mmol/L BUN 16 (7-18) mg/dL Creatinine 1.3 (0.70-1.30) mg/dL Est Cr Clr Drug Dosing TNP Estimated GFR (MDRD) 54 Glucose 161 H (70-99) mg/dL Lactic Acid (0.4-2.0) mmol/L Calcium 9.7 (8.5-10.1) mg/dL Corrected Calcium 10.9 H (8.5-10.1) mg/dL Magnesium 1.9 (1.8-2.4) mg/dL Total Bilirubin 0.8 (0.2-1.0) mg/dL AST 51 H (15-37) U/L ALT 79 H (16-63) U/L Alkaline Phosphatase 83 (46-116) U/L C-Reactive Protein 4.2 H (<=0.9) mg/dL Total Protein 6.8 (6.4-8.2) g/dL Albumin 2.5 L (3.4-5.0) g/dL Globulin 4.3 Albumin/Globulin Ratio 0.58 09/12/ Range/Units 18:33 WBC (4.0-10.0) x10^3/uL RBC (4.5-6.0) x10^6/uL Hgb (14.0-18.0) g/dL Hct (40.0-52.0) % MCV (78.0-93.0) fL MCH (26.0-32.0) pg MCHC (32.0-36.0) g/dL RDW Coeff of [place] (10.0-15.0) % Plt Count (130-400) x10^3/uL Add Manual Diff Neutrophils % (Manual) (50-80) % Band Neutrophils % (0-6) % Lymphocytes % (Manual) (25-50) % Reactive Lymphs % (0) % Monocytes % (Manual) (2-11) % Absolute Neutrophils (1.8-7.7) x10^3/uL Lymphocytes # (Manual) (1.0-4.8) x10^3/uL Monocytes # (Manual) (0.0-0.8) x10^3/uL Hypersegmented Neuts Vacuolated Monocytes Toxic Granulation Platelet Estimate Spherocytes PT (9.9-12.5) SEC INR (2.0-3.5) Sodium (136-145) mmol/L Potassium (3.5-5.1) mmol/L Chloride (98-107) mmol/L Carbon Dioxide (21-32) mmol/L Anion Gap (5-15) mmol/L BUN (7-18) mg/dL Creatinine (0.70-1.30) mg/dL Est Cr Clr Drug Dosing Estimated GFR (MDRD) Glucose (70-99) mg/dL Lactic Acid 2.6 H* (0.4-2.0) mmol/L Calcium (8.5-10.1) mg/dL Corrected Calcium (8.5-10.1) mg/dL Magnesium (1.8-2.4) mg/dL Total Bilirubin (0.2-1.0) mg/dL AST (15-37) U/L ALT (16-63) U/L Alkaline Phosphatase (46-116) U/L C-Reactive Protein (<=0.9) mg/dL Total Protein (6.4-8.2) g/dL Albumin (3.4-5.0) g/dL Globulin Albumin/Globulin Ratio Meds: Medications Generic Name Dose Route Start Last Admin Trade Name Freq PRN Reason Stop Dose Admin Sodium Chloride 1,000 mls @ 999 mls/hr 09/12/21 19:09 Normal Saline IV 09/12/21 20:09 ONETIME ONE Sodium Chloride 10 ml 09/12/21 18:12 Sodium Chloride 0.9% 10 Ml Syringe FLUSH ASDIRECTED PRN Keep Vein Open Discontinued Medications Generic Name Dose Route Start Last Admin Trade Name Ham PRN Reason Stop Dose Admin Ceftriaxone Sodium 2 gm 09/12/21 19:09 Ceftriaxone 2 Gm Vial IVPUSH 09/12/21 19:10 STAT ONE Departure - Departure Time of Disposition: 19:15 Disposition: DC/Tfer to Acute Hospital 02 Condition: Good Clinical Impression: Weakness Elevated WBC count Qualifiers: Leukocytosis type: other Qualified Code(s): D72.828 - Other elevated white blood cell count Prostatitis Qualifiers: Prostatitis type: acute Qualified Code(s): N41.0 - Acute prostatitis - Discharge Information Referrals: Riya Olivas, [Primary Care Provider] - Forms: ED Department Discharge Additional Instructions: -Admit to Acute Care. Dr Riya Olivas to manage. Sepsis Event Note (ED) - Focused Exam Vital Signs: Vital Signs Temp Pulse Resp BP Pulse Ox 09/12/21 17:52 36.6 C 87 20 107/70 95 - Problem List & Annotations (1) Elevated WBC count SNOMED Code(s): 315526328, 892754351 Code(s): D72.829 - ELEVATED WHITE BLOOD CELL COUNT, UNSPECIFIED Status: Acute Current Visit: Yes Annotation/Comment:: WBC=26.4 Qualifiers: Leukocytosis type: other Qualified Code(s): D72.828 - Other elevated white blood cell count (2) Prostatitis SNOMED Code(s): 3827670 Code(s): N41.9 - INFLAMMATORY DISEASE OF PROSTATE, UNSPECIFIED Status: Acute Current Visit: Yes Qualifiers: Prostatitis type: acute Qualified Code(s): N41.0 - Acute prostatitis (3) Sepsis SNOMED Code(s): 68940598 Code(s): A41.9 - SEPSIS, UNSPECIFIED ORGANISM Status: Resolved Current Visit: No Annotation/Comment:: Discharged on 09/07/2021 following Prostatitis/Sepsis. Currently on Levaquin, Ceftriaxone 2gm IVP given in the ER> Lactic Acd=2.6; Procalcitonin pending; Blood Cx drawn and pending. (4) Weakness SNOMED Code(s): 99079211 Code(s): R53.1 - WEAKNESS Status: Acute Current Visit: Yes - Problem List Review Problem List Initiated/Reviewed/Updated: Yes - My Orders Last 24 Hours: My Active Orders 09/12/21 18:12 Sodium Chloride 0.9% [Saline Flush] 10 ml FLUSH ASDIRECTED PRN Blood Culture x2 Reflex Set [OM.PC] Stat Saline Lock Insert [OM.PC] Stat 09/12/21 18:13 CORONAVIRUS COVID-19 RAPID [MOLEC] Stat UA RFX MODESTO AND CULT IF INDIC [URIN] Stat 09/12/21 18:33 ACETAMINOPHEN [CHEM] Stat C-REACTIVE PROTEIN [CHEM] Stat COMPREHENSIVE METABOLIC PN,CMP [CHEM] Stat CULTURE BLOOD [BC] Stat MAGNESIUM [CHEM] Stat 09/12/21 18:40 CULTURE BLOOD [BC] Stat 09/12/21 19:09 Sodium Chloride 0.9% @ Wide Open(1,000ml) Sodium Chloride 0.9% [Normal Saline] 1,000 ml IV ONETIME 09/12/21 19:12 PROCALCITONIN [CHEM] Stat 09/12/21 19:14 Patient Status [ADT] Routine - Assessment/Plan Last 24 Hours: My Active Orders 09/12/21 18:12 Sodium Chloride 0.9% [Saline Flush] 10 ml FLUSH ASDIRECTED PRN Blood Culture x2 Reflex Set [OM.PC] Stat Saline Lock Insert [OM.PC] Stat 09/12/21 18:13 CORONAVIRUS COVID-19 RAPID [MOLEC] Stat UA RFX MODESTO AND CULT IF INDIC [URIN] Stat 09/12/21 18:33 ACETAMINOPHEN [CHEM] Stat C-REACTIVE PROTEIN [CHEM] Stat COMPREHENSIVE METABOLIC PN,CMP [CHEM] Stat CULTURE BLOOD [BC] Stat MAGNESIUM [CHEM] Stat 09/12/21 18:40 CULTURE BLOOD [BC] Stat 09/12/21 19:09 Sodium Chloride 0.9% @ Wide Open(1,000ml) Sodium Chloride 0.9% [Normal Saline] 1,000 ml IV ONETIME 09/12/21 19:12 PROCALCITONIN [CHEM] Stat 09/12/21 19:14 Patient Status [ADT] Routine Plan: See above
[2021-09-12 19:04] LABS: CHLORIDE,CL 97 mmol/L (98-107); SODIUM,NA 132 mmol/L (136-145)
[2021-09-12 19:06] LABS: ANION GAP 15.3 mmol/L (5-15)
--- NOTE | 2021-09-12 19:08 | CR ---
[id number] RAD/RAD Chest PA or AP 1V EXAM: FRONTAL CHEST INDICATION: WEAKNESS. COMPARISON: September 03, 2021. DISCUSSION: Borderline heart size without evidence of edema. Sternotomy. No acute infiltrates. IMPRESSION: 1. No acute findings. Gabriel Santillan MD 09/12/21 [id number] Thank you for allowing us to participate in the care of your patient.
[2021-09-12] MEDS ORDERED: Sodium Chloride 0.9% 1,000 ML IV ONE (19:09)
[2021-09-12] MEDS ORDERED: cefTRIAXone 2 GM Vial IVPUSH ONE (19:09)
[2021-09-12 19:18] LABS: ACETAMINOPHEN 0 ug/ml (10-30)
[2021-09-12] MEDS ORDERED: methylPREDNISolone Sodium Succinate 125 MG/2 ML SDV IVPUSH PRN (20:50)
[2021-09-12] MEDS ORDERED: EPINEPHrine 1 MG/1 ML Amp IM PRN (20:50)
[2021-09-12] MEDS ORDERED: diphenhydrAMINE 50 MG/ML SDV IVPUSH PRN (20:50)
[2021-09-12] MEDS ORDERED: Famotidine 20 MG/2 ML SDV IVPUSH PRN (20:50)
[2021-09-12] MEDS ORDERED: Bamlanivimab 700 MG, ETESEVIMAB 1,400 MG in Sodium Chloride 0.9% 100 ML IV ONE (20:50)
[2021-09-12] MEDS ORDERED: Acetaminophen 500 MG Tab PO PRN (20:50)
[2021-09-12] MEDS ORDERED: Sodium Chloride 0.9% 10 ML Syringe FLUSH SCH (21:00)
[2021-09-12] MEDS ORDERED: Levofloxacin 500 MG Tab PO SCH (22:00)
--- NOTE | 2021-09-12 23:38 | HP ---
CHIEF COMPLAINT: Weakness. HISTORY OF PRESENT ILLNESS: This 75-year-old male, who had an acute admission for E coli bacteremia due to prostatitis from 09/03 through 09/07, was discharged home and was doing okay, and then, he had chills this morning. Home health came to see him. They felt he was just so weak and recommended he be evaluated in the ER. Upon arrival, he was afebrile. His blood pressure was around 100 systolic and pulse 87. He had no cough and no shortness of breath. He had been urinating okay. He did have a catheter on his previous stay. He has no new back pain or aches or pains, but his COVID test did come back positive, is not ill, no known exposure. White count was also 26,000, and discharging white count was 13.7; however, his procalcitonin returned negative. The patient had been at home and mostly in contact with just his . The patient is fully vaccinated with 2 doses of Moderna last spring eligible for a booster now anytime. ALLERGIES: Include none. MEDICATION LIST: Currently includes diltiazem 180 daily, Levaquin 500 daily until 10/02, potassium 20 mEq daily, lisinopril 20 mg daily, metformin 1000 daily, Glucotrol 5 mg daily, metoprolol 200 daily, Tylenol 500 as needed, Lasix 20 mg daily, warfarin he has been alternating 5 and 2.5 daily, Flomax 0.4 daily, digoxin 0.0625 mg daily, Neurontin 100 mg at bedtime, vitamin D once a week, Crestor 10 mg daily, amoxicillin prior to dental work, and aspirin 81 mg daily. PAST MEDICAL HISTORY: Includes coronary artery disease with previous CABG surgery; type 2 diabetes; morbid obesity; atrial fibrillation; aortic stenosis with previous TAVR 1 year ago; BPH; colon polyps; ascending aortic dilation; central retinal vein occlusion; kidney tumor, not felt to be cancerous; essential hypertension; hypercalcemia with a history of kidney stones, negative parathyroid scan in the past, just on monitoring; hyperlipidemia; hypertriglyceridemia; obstructive sleep apnea, on CPAP; osteoarthritis; and radicular back pain, chronic. PAST SURGICAL HISTORY: Surgically, the patient has had that heart bypass surgery, the aortic stenosis procedure, vein stripping, right total knee replacement, and tonsils and adenoidectomy. SOCIAL HISTORY: The patient is . He lives at home with his . He is a former smoker. 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 Occasional alcohol. FAMILY HISTORY: Both parents are . Father had leukemia. REVIEW OF SYSTEMS: General: The patient has had decreased appetite. Unaware of any weight changes. He has had no fever but has been chilled. HEENT: No sore throat. No trouble swallowing. Cardiac: No chest pain. No palpitations. Respiratory: No cough. No shortness of breath. Musculoskeletal: No joint aches or pains. He has chronic back pain. Neurological: He is just generally feeling weak and no focal weakness. Otherwise, all systems are reviewed and negative unless otherwise stated. OBJECTIVE: Vital Signs: His temperature 97.8, pulse 87, blood pressure 107/70, respiratory rate 20, and O2 of 95 on room air. General: He is in no acute distress. Heart: Irregularly irregular. Lungs: His lung sounds are clear to auscultation bilaterally without crackles or wheezes. Abdomen: Positive bowel sounds. It is soft, nondistended, and nontender. Extremities: Warm and dry. No edema. Mental Status: He is alert. He is orientated x3. He is answering questions appropriately. Skin: He has no rashes or skin lesions. RADIOGRAPHIC DATA: His chest x-ray is reviewed. It shows no focal infiltrates or changes of pulmonary edema, no acute findings, previous sternotomy. LABORATORY WORK: Did show white count up to 26.4, hemoglobin 14, and platelets 430. INR 2.3. Sodium 132, potassium 5.3, chloride 97, bicarb 25, BUN 16, creatinine 1.3, and glucose 161. Lactic 2.6. Calcium corrected 10.9, magnesium 1.9, bilirubin 0.8, AST 51, ALT 79, and alkaline phosphatase 83. CRP 4.2, down from 10.7 on his previous stay. Albumin 2.1. Procalcitonin is less than 0.05. Acetaminophen 0. COVID is positive. ASSESSMENT: 1. Coronavirus disease 2019. Symptoms started today with chills and weakness. The patient was discharged from the hospital just 5 days ago. No known source of exposure. Given that the patient is not hypoxic, he is being admitted observation only due to weakness, and that is likely from his previous hospital stay as well. We will give him an infusion of bamlanivimab, and I have communicated with the patient that it is authorized for emergency use for the treatment of [id number] coronavirus disease, and he had the option whether to accept the treatment, which he did, and I discussed the risks and benefits of the therapy and that this is experimental use and has been studied in clinical trials. The patient and his are both present and elect to proceed. 2. Escherichia coli bacteremia due to prostatitis. The patient is not having any symptoms and it seems to be under control other than leukocytosis. We will repeat laboratory work tomorrow. He did get 2 g of IV Rocephin while awaiting his coronavirus disease test. I will continue the oral Levaquin. 3. Hyperkalemia, mild. He has been on replacement potassium. We will stop that. He is also on lisinopril, but I will continue that with holding parameters. We will repeat potassium tomorrow. Kidney function is normal. 4. Mild hyponatremia. 5. Mildly elevated lactic acid. I am going to go ahead and repeat in the morning. Now that the patient has coronavirus disease, I am not thinking that he has sepsis, and he is also on metformin, so I will hold that. 6. Mildly elevated LFTs, possibly due to coronavirus disease. We will repeat tomorrow. 7. Mild malnutrition. He has not been eating well. We will certainly encourage a diet. 8. Atrial fibrillation, rate controlled. We will continue digoxin, diltiazem, and Coumadin. I will check an INR tomorrow. 9. Morbid obesity. 10.Sleep apnea. We will place him on continuous positive airway pressure. 11.Coronary artery disease. He is not having any chest pain. 12.Diabetes. Blood sugar is up in the 160s. I will continue his glipizide. We will use insulin if needed for blood sugars over 200. Otherwise, I will hold the metformin until his lactic acid normalizes. PLAN: The patient will be admitted to observation. He is going to get the bamlanivimab infusion. He does not have any indication for dexamethasone. We will consider some remdesivir from tomorrow if indicated. We will let him use his CPAP. He is not currently needing any nebulizers or respiratory treatments. We will have him on yogurt for C diff prophylaxis. He is not having any diarrhea or GI symptoms. For DVT prophylaxis, he is therapeutic on Coumadin. He is a code level 1. MKA: 09/12/2021 21:10:26 MODL: 09/12/2021 22:25:36 /[id number] MTDD
[2021-09-13 07:36] LABS: ANION GAP 14.9 mmol/L (5-15)
[2021-09-13] MEDS ORDERED: Digoxin 125 MCG Tab PO SCH (08:00)
[2021-09-13] MEDS: Diltiazem 180 MG Cap.CD PO SCH (09:38)
[2021-09-13] MEDS: Aspirin 81 MG Tab.EC PO SCH (09:38)
[2021-09-13] MEDS: Lisinopril 20 MG Tab PO SCH (09:38)
[2021-09-13] MEDS: Tamsulosin 0.4 MG Cap.ER PO SCH (09:39)
[2021-09-13] MEDS: Rosuvastatin 20 MG Tab PO SCH (09:39)
[2021-09-13] MEDS: Metoprolol Succinate 50 MG Tab.ER PO SCH (09:40)
[2021-09-13] MEDS: Digoxin 125 MCG Tab PO SCH (09:40)
[2021-09-13] MEDS: glipiZIDE 5 MG Tab PO SCH (09:42)
--- NOTE | 2021-09-13 10:53 | PN ---
Progress Note for LUIS ESPARZA Date: 09/13/2021 Room #: VM.210 SUBJECTIVE: This is hospital day #2 on a 75-year-old admitted last night with weakness due to COVID-19 and recent admission for gram-negative bacteremia due to prostatitis. Patient had been recovering at home. He was discharged 5 days ago, but then yesterday morning he had chills and became weak. The home health nurse recommended evaluation and his white count was 26,000. So he was going to be admitted and COVID testing done for admission came up positive. He has no known contacts. He has not had any cough or shortness of breath. Decision was made given his high risk, given his age, weight, and other comorbidities to give a bamlanivimab infusion as patient did not meet acute criteria with any hypoxia or ongoing acute hospital need, just the weakness. Patient got that infusion overnight. He is feeling good today. He has been up to the chair. He has eaten breakfast, but his appetite is down. He only ate 50%. He has been afebrile. He is off oxygen. He did use his CPAP. OBJECTIVE: Vital Signs: His temperature is 97.6, his pulse 81, blood pressure 118/68, respiratory rate 18, and O2 of 98 on room air. General: He is in no acute distress. Heart: Irregularly irregular. S1, S2, without murmur. Lungs: Sounds are clear to auscultation bilaterally without crackles or wheezes. Abdomen: Has positive bowel sounds. It is soft, nondistended, nontender. Extremities: Warm, dry. No edema. Mental Status: Alert and orientated x3. LABORATORY DATA: Lab work did show his white count down to 19,000, hemoglobin 13.7, platelets 399. INR 2.2. Sodium 133, potassium 4.9, chloride 98, bicarb 25, BUN 19, creatinine 1.3, glucose 129. Lactic 1.7. Corrected calcium 11.2, which is not a new thing for him. Bilirubin 0.9, AST 32, ALT 62, alkaline phosphatase 76. Albumin 2.3. Urine did show 20 to 30 rbc's and 5 to 10 wbc's, but he is having no urinary symptoms, and he does have a bladder tumor that is supposed to be resected in October. ASSESSMENT AND PLAN: 1. COVID-19 infection with weakness and fatigue. He is status post a BAM infusion and can return home later today or tomorrow after a PT evaluation. He will remain on observation. 2. Recent Escherichia coli bacteremia due to prostatitis. He did get 2 g of IV Rocephin in the ER. He will complete a 4-week course of Levaquin. He is continuing with that currently. 3. Hyperkalemia, resolved. We stopped his potassium. 4. Hyponatremia, improved, probably due to acute illness. 5. Hypercalcemia, chronic. We will continue to monitor, possibly worsened by some dehydration with the COVID. 6. Mild hepatitis, resolved, possibly due to COVID. 7. Mild malnutrition. We will encourage diet. 8. Atrial fibrillation, rate controlled, and therapeutic on warfarin. 9. Morbid obesity. 10.Sleep apnea. He is using a CPAP. 11.Coronary artery disease. 12.Chronic diastolic heart failure. His Lasix is on hold. We will restart on discharge once daily. 13.Diabetes. Blood sugars controlled. We will restart metformin now that his lactic acid has normalized. PLAN: The patient will continue on observation. He will be seen by therapies today. We will repeat lab work tomorrow if he continues in the hospital. He will be on yogurt for C difficile prophylaxis. For DVT prophylaxis, he is therapeutic on Coumadin. MKA: 09/13/2021 10:18:23 MODL: 09/13/2021 10:45:13 /[id number]
[2021-09-13] MEDS ORDERED: metFORMIN 500 MG Tab PO SCH (18:00)
[2021-09-13] MEDS ORDERED: Levofloxacin 500 MG Tab PO SCH (20:00)
[2021-09-13] MEDS ORDERED: Gabapentin 100 MG Cap PO SCH (20:00)
[2021-09-13] MEDS ORDERED: Warfarin 5 MG Tab PO SCH (20:00)
[2021-09-14 07:07] LABS: CHLORIDE,CL 101 mmol/L (98-107); SODIUM,NA 133 mmol/L (136-145)
[2021-09-14 07:08] LABS: ANION GAP 12.5 mmol/L (5-15)
[2021-09-14] MEDS: Aspirin 81 MG Tab.EC PO SCH (08:15)
[2021-09-14] MEDS: glipiZIDE 5 MG Tab PO SCH (08:15)
[2021-09-14] MEDS: Rosuvastatin 20 MG Tab PO SCH (08:16)
[2021-09-14] MEDS: Tamsulosin 0.4 MG Cap.ER PO SCH (08:18)
[2021-09-14] MEDS: Lisinopril 20 MG Tab PO SCH (08:18)
[2021-09-14] MEDS: Diltiazem 180 MG Cap.CD PO SCH (08:18)
[2021-09-14] MEDS: Digoxin 125 MCG Tab PO SCH (08:20)
[2021-09-14] MEDS: Metoprolol Succinate 50 MG Tab.ER PO SCH ×2 (08:21→08:32)
[2021-09-14 10:12] VITALS: BP 90/58; PULSE 80
[2021-09-14] MEDS ORDERED: Warfarin 2.5 MG Tab PO SCH (20:00)
--- NOTE | 2021-09-15 02:49 | DISCH ---
PRIMARY DISCHARGE DIAGNOSIS: COVID-19 infection with weakness. This is following an acute stay for sepsis with Escherichia coli bacteremia due to prostatitis. SECONDARY DISCHARGE DIAGNOSES: 1. Escherichia coli bacteremia due to prostatitis. 2. Hyperkalemia from supplements, resolved. 3. Hyponatremia from acute illness, resolved. 4. Chronic hypercalcemia, stable. 5. Mild hepatitis, likely due to COVID, improving. 6. Atrial fibrillation, rate controlled, therapeutic on warfarin. Discharging INR 1.9. 7. Mild malnutrition; morbid obesity; sleep apnea; coronary artery disease; chronic diastolic heart failure; and type 2 diabetes, controlled with unspecified complications, not on insulin. REASON FOR ADMISSION: On the date of admission, this 75-year-old male, who had been home about 5 days after his acute stay, was seen by Home Health. He had had some chills in the morning. He was just overall very weak. He came in the ER. His white count was elevated up to 26,000. There was some concern that maybe his infection had returned; however, his procalcitonin was negative. He was on oral Levaquin given Rocephin in ER. The patient was tested for COVID-19 and was positive. Due to the fact he was not hypoxic, he was not even coughing or having any respiratory symptoms, he was placed on observation and given an infusion of bamlanivimab, which he tolerated well. By the next day, the patient was doing well. He worked with therapies. They felt he was even doing better than on his previous discharge. He was independent, but still with the elevated white count up to 19,000. Decision was made to keep him 1 more night, and today, he is still doing well. His white count is now down to 14.7. He has been tolerating a diet. He has not required any oxygen. Blood sugars have been excellent, even with holding the metformin, and his lactic was 2.6 on admission, but improved to 1.7. Urine was also mildly positive, but he had recently had a cystoscopy and does have a bladder tumor that he will have to have a procedure on in October. The patient is unsure where he acquired COVID. His has not been ill. We did decrease his metoprolol down from 200 to 100 daily and held his lisinopril this morning. His Lasix has also been held during his stay and will just be p.r.n. on discharge. PHYSICAL EXAMINATION: Vital Signs: Discharging vitals include a temperature 96, pulse 80, blood pressure 90/58, respiratory rate 97, and O2 96% on room air. General: He is in no acute distress. Heart: Irregularly irregular. Lungs: Sounds are clear to auscultation bilaterally without crackles or wheezes. Abdomen: Positive bowel sounds. Soft and nontender. Extremities: Warm and dry. No edema. Mental Status: Alert and orientated x3. DISCHARGE PLANS AND INSTRUCTIONS: He will follow up on 09/21 as previously planned unless he is ill. He will have lab work at that visit. He will have an INR Sunday to be drawn by home health and he will continue tonight with a 2.5 of Coumadin alternating with 5 mg as he had been at home. He will finish out his course of Levaquin as planned in September and he will stop his potassium pills. He will decrease Toprol to 100, Lasix as needed, and he will return if his symptoms worsen. [id number] encounter for home health occurred with myself on 09/14/2021. Primary reason for home health are for teaching and assessment for monitoring of hypoxia after an admission for COVID and PT to work with for gait and balance. Due to his weakness from the recent hospital stay, he requires a walker and assistance of another person to leave his home, and absences from home are infrequent and require taxing effort. I will periodically review this plan of care. MKA: 09/14/2021 16:18:40 MODL: 09/15/2021 02:42:16 /[id number]
[2021-09-15] MEDS ORDERED: Metoprolol Succinate 50 MG Tab.ER PO SCH (08:00)
== END 2021-09-14 10:30 | disposition home health service (06) | DRG 178 ==
LOC: VM.ED 17:52 → VM.MS 19:14
PROVIDERS: ADMIT Internal Medicine; ATTEND Internal Medicine
PROC: XW033F6 Introduction of Bamlanivimab Monoclonal Antibody into Peripheral Vein, Percutaneous Approach, New Technology Group 6 (ICD-10-PCS; principal; 2021-09-12)
DX: A41.9 Sepsis, unspecified organism (principal); U07.1 COVID-19; R53.1 Weakness; D72.828 Other elevated white blood cell count; N41.0 Acute prostatitis; E87.1 Hypo-osmolality and hyponatremia; E44.1 Mild protein-calorie malnutrition; I50.32 Chronic diastolic (congestive) heart failure; E78.00 Pure hypercholesterolemia, unspecified; I35.0 Nonrheumatic aortic (valve) stenosis; G47.30 Sleep apnea, unspecified; I48.91 Unspecified atrial fibrillation; M54.9 Dorsalgia, unspecified; E66.01 Morbid (severe) obesity due to excess calories; I25.10 Atherosclerotic heart disease of native coronary artery without angina pectoris; E11.9 Type 2 diabetes mellitus without complications; Z23 Encounter for immunization; Z85.038 Personal history of other malignant neoplasm of large intestine; Z79.01 Long term (current) use of anticoagulants; Z79.84 Long term (current) use of oral hypoglycemic drugs; Z79.899 Other long term (current) drug therapy; Z79.82 Long term (current) use of aspirin; Z95.1 Presence of aortocoronary bypass graft; Z95.2 Presence of prosthetic heart valve; N40.0 Benign prostatic hyperplasia without lower urinary tract symptoms; I10 Essential (primary) hypertension; Z86.010 Personal history of colon polyps; E83.52 Hypercalcemia; Z87.442 Personal history of urinary calculi; E78.5 Hyperlipidemia, unspecified; E78.1 Pure hyperglyceridemia; G47.33 Obstructive sleep apnea (adult) (pediatric); M19.90 Unspecified osteoarthritis, unspecified site; G89.29 Other chronic pain; E87.5 Hyperkalemia; K75.9 Inflammatory liver disease, unspecified; N41.9 Inflammatory disease of prostate, unspecified
CPT/HCPCS: 36415; 71045; 80048; 80053; 80143; 81001; 82947; 83605; 83735; 84145; 85025; 85610; 86140; 87040; 97162-GP; 99284; 99285-25; A9270-GY; J0696; J7030; Q0245; U0002

== ENCOUNTER 2021-12-18 16:59 | Observation (INO) | payer MEDICARE, BC ==
[2021-12-18] MEDS ORDERED: Sodium Chloride 0.9% 10 ML Syringe FLUSH PRN (17:03)
[2021-12-18] MEDS ORDERED: cefTRIAXone 2 GM Vial IVPUSH ONE (17:08)
[2021-12-18] MEDS ORDERED: Lactated Ringers 1,000 ML IV ONE (17:09)
[2021-12-18 17:56] LABS: PTT,PARTIAL THROMBOPLSTIN TIME 24.3 SEC (25.6-32.8)
[2021-12-18 18:03] LABS: CHLORIDE,CL 100 mmol/L (98-107); SODIUM,NA 135 mmol/L (136-145)
[2021-12-18] MEDS ORDERED: Magnesium Oxide 400 MG Tab PO STA (18:07)
[2021-12-18] MEDS ORDERED: Acetaminophen 500 MG Tab PO ONE (20:00)
[2021-12-18] MEDS ORDERED: Acetaminophen 325 MG Tab PO PRN (20:28)
[2021-12-18] MEDS ORDERED: Lactated Ringers 1,000 ML IV SCH (20:45)
[2021-12-19] MEDS ORDERED: Ergocalciferol (Vitamin D2) 1.25 MG Cap PO SCH (03:15)
[2021-12-19] MEDS ORDERED: Furosemide 40 MG Tab PO PRN (03:15)
[2021-12-19 07:18] LABS: CHLORIDE,CL 100 mmol/L (98-107); SODIUM,NA 134 mmol/L (136-145)
[2021-12-19 07:20] LABS: ANION GAP 13.1 mmol/L (5-15)
[2021-12-19] MEDS ORDERED: glipiZIDE 5 MG Tab PO SCH (08:00)
[2021-12-19] MEDS ORDERED: metFORMIN 500 MG Tab PO SCH (08:00)
[2021-12-19] MEDS ORDERED: Magnesium Oxide 400 MG Tab PO SCH (08:00)
[2021-12-19] MEDS ORDERED: Metoprolol Succinate 50 MG Tab.ER PO SCH (08:00)
[2021-12-19] MEDS ORDERED: amLODIPine 10 MG Tab PO SCH (08:00)
[2021-12-19] MEDS ORDERED: Tamsulosin 0.4 MG Cap.ER PO SCH (08:00)
[2021-12-19] MEDS ORDERED: Diltiazem 180 MG Cap.CD PO SCH (08:00)
[2021-12-19] MEDS ORDERED: Aspirin 81 MG Tab.EC PO SCH (08:00)
[2021-12-19] MEDS ORDERED: Rosuvastatin 20 MG Tab PO SCH (08:00)
[2021-12-19] MEDS ORDERED: Digoxin 125 MCG Tab PO SCH ×2 (08:00→08:15)
[2021-12-19] MEDS ORDERED: Lisinopril 20 MG Tab PO SCH (08:00)
[2021-12-19 14:27] VITALS: BP 110/75; PULSE 77
[2021-12-19] MEDS ORDERED: Gabapentin 100 MG Cap PO SCH (20:00)
[2021-12-19] MEDS ORDERED: Warfarin 2.5 MG Tab PO SCH (20:00)
[2021-12-20] MEDS ORDERED: Warfarin 5 MG Tab PO SCH (20:00)
== END 2021-12-19 15:25 | disposition home or self-care (01) ==
LOC: VM.ED 16:59 → VM.MS 19:56
PROVIDERS: ADMIT Nurse Practitioner Family; ATTEND Nurse Practitioner Family
DX: U07.1 COVID-19 (principal); I10 Essential (primary) hypertension; I25.10 Atherosclerotic heart disease of native coronary artery without angina pectoris; I48.20 Chronic atrial fibrillation, unspecified; G47.33 Obstructive sleep apnea (adult) (pediatric); E78.5 Hyperlipidemia, unspecified; E11.9 Type 2 diabetes mellitus without complications; E78.2 Mixed hyperlipidemia; G47.30 Sleep apnea, unspecified; E66.9 Obesity, unspecified; E87.2 Acidosis; E83.42 Hypomagnesemia; Z79.899 Other long term (current) drug therapy; Z98.890 Other specified postprocedural states; Z95.1 Presence of aortocoronary bypass graft; Z79.84 Long term (current) use of oral hypoglycemic drugs; Z68.36 Body mass index [BMI] 36.0-36.9, adult
CPT/HCPCS: 36415; 71045; 80048; 80053; 80162; 81001; 83605; 83735; 84145; 84484; 85025; 85610; 85730; 86140; 87040; 93005; 93010; 96374; 97162-GP; 99217; 99220; 99285-25; A9270-GY; G0378; J0696; J7120; U0002

== ENCOUNTER 2022-07-21 06:24 | Day surgery (SDC) | payer MEDICARE, BC ==
[2022-07-21] MEDS ORDERED: Lactated Ringers 1,000 ML IV SCH ×2 (06:30→07:00)
[2022-07-21] MEDS ORDERED: fentaNYL 100 MCG/2 ML SDV IVPUSH PRN (07:44)
[2022-07-21] MEDS ORDERED: Midazolam 1 MG/ML 2 ML SDV IVPUSH PRN (07:44)
[2022-07-21 09:08] VITALS: BP 142/91; PULSE 89
== END 2022-07-21 10:30 | disposition home or self-care (01) ==
LOC: VM.SDS 06:24
PROVIDERS: ATTEND Student in an Organized Health Care Education/Training Program
DX: Z12.11 Encounter for screening for malignant neoplasm of colon (principal); D12.3 Benign neoplasm of transverse colon; I25.10 Atherosclerotic heart disease of native coronary artery without angina pectoris; N40.0 Benign prostatic hyperplasia without lower urinary tract symptoms; G47.33 Obstructive sleep apnea (adult) (pediatric); E11.42 Type 2 diabetes mellitus with diabetic polyneuropathy; R32 Unspecified urinary incontinence; I48.20 Chronic atrial fibrillation, unspecified; E53.8 Deficiency of other specified B group vitamins; E66.01 Morbid (severe) obesity due to excess calories; I11.0 Hypertensive heart disease with heart failure; Z79.82 Long term (current) use of aspirin; Z86.010 Personal history of colon polyps; Z79.01 Long term (current) use of anticoagulants; Z98.890 Other specified postprocedural states; Z79.84 Long term (current) use of oral hypoglycemic drugs; Z68.38 Body mass index [BMI] 38.0-38.9, adult
CPT/HCPCS: 45380; 45385; 82947; 85610; J7120; 88305

== ENCOUNTER 2024-10-08 12:25 | Inpatient (IN) | payer MEDICARE, BC ==
[2024-10-08] MEDS ORDERED: Acetaminophen/HYDROcodone 325-5 MG Tab PO PRN (16:30)
[2024-10-08] MEDS ORDERED: Ondansetron 4 MG Tab.DIS PO PRN (16:30)
[2024-10-08] MEDS ORDERED: Furosemide 40 MG Tab PO PRN (16:30)
[2024-10-08] MEDS ORDERED: Sennosides 8.6 MG Tab PO PRN (16:30)
[2024-10-08] MEDS: Gabapentin 100 MG Cap PO SCH (20:52)
[2024-10-08] MEDS: Ergocalciferol (Vitamin D2) 1.25 MG Cap PO SCH (20:53)
[2024-10-08] MEDS ORDERED: METFORMIN HCL 1000 MG PO SCH (21:00)
[2024-10-09 06:54] LABS: BASOPHILS PERCENT AUTO 0.4 % (0.2-1.2); EOSINOPHILS ABSOLUTE AUTO 0.3 x10^3/uL (0.0-0.5); EOSINOPHILS PERCENT AUTO 2.9 % (0.0-4.0); HEMATOCRIT 47.2 % (40.0-52.0); HEMOGLOBIN 16.2 g/dL (14.0-18.0); IMMATURE GRAN ABSOLUTE AUTO 0.07 x10^3/uL (0.00-0.07); LYMPHOCYTES ABSOLUTE AUTO 1.7 x10^3/uL (1.0-4.8); LYMPHOCYTES PERCENT AUTO 16.5 % (25.0-50.0); MEAN CORPUSCULAR HEMOGLOBIN 31.7 pg (26.0-32.0); MEAN CORPUSCULAR HGB CONC 34.3 g/dL (32.0-36.0); MEAN CORPUSCULAR VOLUME 92.4 fL (78.0-93.0); MONOCYTES ABSOLUTE AUTO 1.4 x10^3/uL (0.0-0.8); MONOCYTES PERCENT AUTO 13.6 % (2.0-11.0); NEUTROPHILS ABSOLUTE AUTO 6.7 x10^3/uL (1.8-7.7); NEUTROPHILS PERCENT AUTO 65.9 % (50.0-80.0); PLATELET COUNT,PLT 276 x10^3/uL (130-400); RED BLOOD CELL COUNT 5.11 x10^6/uL (4.5-6.0); WHITE BLOOD CELL COUNT,WBC 10.1 x10^3/uL (4.0-10.0)
[2024-10-09 07:08] LABS: INR 2.6 (0.9-1.1); PROTHROMBIN TIME 25.3 SEC (8.9-11.5)
[2024-10-09 07:22] LABS: A/G RATIO 0.59; ALBUMIN 2.3 g/dL (3.4-5.0); ANION GAP 11.6 mmol/L (5-15); BILIRUBIN TOTAL 0.7 mg/dL (0.2-1.0); CALCIUM 9.2 mg/dL (8.5-10.1); CREATININE 1.8 mg/dL (0.70-1.30); EST CRCL DRUG DOSING (CG) 37.72 mL/min; POTASSIUM,K 3.6 mmol/L (3.5-5.1); PROTEIN TOTAL,TP 6.2 g/dL (6.4-8.2)
[2024-10-09] MEDS: Rosuvastatin 20 MG Tab PO SCH (08:35)
[2024-10-09] MEDS: Metoprolol Succinate 50 MG Tab.ER PO SCH (08:38)
[2024-10-09] MEDS: Warfarin 5 MG Tab PO SCH (08:39)
[2024-10-09] MEDS: amLODIPine 10 MG Tab PO SCH (08:39)
[2024-10-09] MEDS: Tamsulosin 0.4 MG Cap.ER PO SCH (08:39)
[2024-10-09] MEDS: Cyanocobalamin (Vitamin B12) 1,000 MCG Tab PO SCH (08:39)
[2024-10-09] MEDS: Aspirin 81 MG Tab.EC PO SCH (08:40)
[2024-10-10 07:14] LABS: INR 2.2 (0.9-1.1); PROTHROMBIN TIME 21.5 SEC (8.9-11.5)
[2024-10-12] MEDS: Acetaminophen 500 MG Tab PO PRN (20:19)
[2024-10-13 07:19] LABS: BASOPHILS PERCENT AUTO 0.3 % (0.2-1.2); EOSINOPHILS ABSOLUTE AUTO 0.3 x10^3/uL (0.0-0.5); EOSINOPHILS PERCENT AUTO 3.1 % (0.0-4.0); HEMATOCRIT 45.4 % (40.0-52.0); HEMOGLOBIN 15.6 g/dL (14.0-18.0); IMMATURE GRAN ABSOLUTE AUTO 0.04 x10^3/uL (0.00-0.07); LYMPHOCYTES ABSOLUTE AUTO 1.8 x10^3/uL (1.0-4.8); LYMPHOCYTES PERCENT AUTO 17.8 % (25.0-50.0); MEAN CORPUSCULAR HEMOGLOBIN 32.8 pg (26.0-32.0); MEAN CORPUSCULAR HGB CONC 34.4 g/dL (32.0-36.0); MEAN CORPUSCULAR VOLUME 95.4 fL (78.0-93.0); MONOCYTES ABSOLUTE AUTO 0.9 x10^3/uL (0.0-0.8); MONOCYTES PERCENT AUTO 8.4 % (2.0-11.0); NEUTROPHILS ABSOLUTE AUTO 7.2 x10^3/uL (1.8-7.7); PLATELET COUNT,PLT 303 x10^3/uL (130-400); RED BLOOD CELL COUNT 4.76 x10^6/uL (4.5-6.0); WHITE BLOOD CELL COUNT,WBC 10.3 x10^3/uL (4.0-10.0)
[2024-10-13 07:21] LABS: INR 1.9 (0.9-1.1); PROTHROMBIN TIME 18.4 SEC (8.9-11.5)
[2024-10-13 07:27] LABS: ALBUMIN 2.6 g/dL (3.4-5.0); CALCIUM 9.5 mg/dL (8.5-10.1); CREATININE 1.6 mg/dL (0.70-1.30); EST CRCL DRUG DOSING (CG) 42.44 mL/min; PHOSPHORUS 3.7 mg/dL (2.6-4.7); POTASSIUM,K 4.9 mmol/L (3.5-5.1)
[2024-10-15 07:13] LABS: PROTHROMBIN TIME 19.8 SEC (8.9-11.5)
[2024-10-15 10:39] VITALS: BP 138/60; PULSE 84
== END 2024-10-15 10:00 | disposition home or self-care (01) | DRG 948 ==
LOC: VM.MS 15:00
PROVIDERS: ADMIT Internal Medicine; ATTEND Internal Medicine
DX: R53.1 Weakness (principal); C64.2 Malignant neoplasm of left kidney, except renal pelvis; I48.20 Chronic atrial fibrillation, unspecified; E11.9 Type 2 diabetes mellitus without complications; I25.10 Atherosclerotic heart disease of native coronary artery without angina pectoris; N40.0 Benign prostatic hyperplasia without lower urinary tract symptoms; M54.50 Low back pain, unspecified; G89.29 Other chronic pain; I10 Essential (primary) hypertension; E78.5 Hyperlipidemia, unspecified; G47.33 Obstructive sleep apnea (adult) (pediatric); N99.0 Postprocedural (acute) (chronic) kidney failure; E83.52 Hypercalcemia; E66.9 Obesity, unspecified; Z95.2 Presence of prosthetic heart valve; Z79.84 Long term (current) use of oral hypoglycemic drugs; Z79.01 Long term (current) use of anticoagulants; Z79.899 Other long term (current) drug therapy; Z86.0100 Personal history of colon polyps, unspecified; Z95.1 Presence of aortocoronary bypass graft; Z98.890 Other specified postprocedural states; Z68.36 Body mass index [BMI] 36.0-36.9, adult
CPT/HCPCS: 36415; 80053; 80069; 82947; 85025; 85610; 95851-GO; 97110-GP; 97112-GP; 97116-GP; 97161-GP; 97165-GO; 97530-GO; 97535-GO; A9270-GY